=== PATIENT | female | born 1935 | race African-American/Black ===

== ENCOUNTER 2021-03-07 01:51 | Emergency (ER) | payer MEDICARE, OTHER ==
[~2021-03-07] VITALS: Ht 172.7 cm; Wt 139.7 kg
[2021-03-07] MEDS ORDERED: MORPHINE SULFATE 4 MG/ML SYR/VIAL IV ONE (02:30)
[2021-03-07 02:41] LABS: Basophils # (auto) 0.3 10 ^3/uL (0-0.2); Basophils % (auto) 3.4 % (0.0-2.0); Eosinophils # (auto) 0.1 10 ^3/uL (0-0.8); Hematocrit 38.5 % (36.0-46.0); Hemoglobin 13.4 g/dL (12.2-16.2); Lymphocytes # (auto) 1.4 10 ^3/uL (0.4-5.4); Lymphocytes % (auto) 14.9 % (10.0-50.0); Mean Corpuscular Hemoglobin 31.4 pg (28.0-32.0); Mean Corpuscular Hgb Conc. 34.8 g/dL (32.0-36.0); Mean Corpuscular Volume 90.1 fL (80.0-100.0); Monocytes # (auto) 0.5 10 ^3/uL (0-1.3); Monocytes % (auto) 5.3 % (0.0-12.0); Neutrophils # (auto) 6.9 10 ^3/uL (1.6-8.6); Neutrophils % (auto) 75.4 % (37.0-80.0); Nucleated Red Blood Cells % 0.4 %; Red Blood Cells 4.27 10^6/uL (4.0-5.20); Red Cell Distribution Width 14.5 % (11.8-14.3); White Blood Cell 9.2 10^3/uL (4.4-10.8)
[2021-03-07 02:45] LABS: INR 1.06 (0.9-1.15)
[2021-03-07 02:50] LABS: Albumin 3.5 g/dL (3.4-5.0); Calcium 9.3 mg/dL (8.5-10.1); Potassium 4.8 mmol/L (3.5-5.1)
[2021-03-07 02:52] LABS: BUN/Creatinine Ratio 15.9
[2021-03-07 02:55] LABS: Bilirubin, Total 0.6 mg/dL (0.2-1.0); Total Protein 9.1 g/dL (6.4-8.2)
[2021-03-07] MEDS ORDERED: HEPARIN DRIP/D5W 100UNITS/ML 250 ML IV SCH (03:45)
[2021-03-07] MEDS ORDERED: HEPARIN SODIUM (PORCINE) 5000 UNITS/ML 1ML VIAL IV ONE (03:45)
[2021-03-07 04:24] VITALS: BP 162/84
== END 2021-03-07 04:57 | disposition short-term general hospital (02) ==
LOC: ER 01:51 → EDBD 01:51 → ER 04:57
DX: I70.90 Unspecified atherosclerosis (principal); I11.0 Hypertensive heart disease with heart failure; I50.9 Heart failure, unspecified; E11.9 Type 2 diabetes mellitus without complications; E78.5 Hyperlipidemia, unspecified; Z88.0 Allergy status to penicillin; Z20.822 Contact with and (suspected) exposure to COVID-19
CPT/HCPCS: 36415; 80053; 85025; 85610; 85730; 87426; 93005; 93926; 93971; 96365; 96375; 96376; 99285; J1644; J2270

== ENCOUNTER 2022-06-26 04:39 | Inpatient (IN) | payer OTHER, MEDICAID ==
[~2022-06-26] VITALS: Ht 177.8 cm; Wt 145.0 kg
[2022-06-26] MEDS ORDERED: MORPHINE SULFATE INJ 2 MG/ml SYRG IV PRN (08:30)
[2022-06-26] MEDS ORDERED: ONDANSETRON HCL 4 MG/2 ML VIAL IV PRN (08:30)
[2022-06-26] MEDS ORDERED: DEXTROSE (50%) 50ML SYRG IV PRN (08:30)
[2022-06-26] MEDS ORDERED: hydrALAZINE HCL 10 MG TAB PO PRN (08:45)
[2022-06-26] MEDS ORDERED: DOCUSATE SOD 100 MG CAP PO PRN (08:45)
[2022-06-26] MEDS ORDERED: ACETAMINOPHEN 325 MG TAB PO PRN (08:45)
[2022-06-26 09:15] VITALS: BP 98/55
[2022-06-26] MEDS: HYDROcodone-ACET 5/325MG TAB PO PRN (09:34)
[2022-06-26] MEDS: InsuLIN REG 1unit/0.01ml Soln (100units/ml) SC SCH ×3 (11:30→22:00)
[2022-06-26] MEDS: ACCU-CHEK COMFORT CURVE STRIP VI SCH ×3 (12:32→22:58)
[2022-06-26] MEDS: levoFLOXacin 500MG 100 ML IV SCH (12:43)
[2022-06-26 13:00] VITALS: BP 96/49
[2022-06-26] MEDS ORDERED: CLINDAMYCIN 600MG IV 50 ML IV SCH (14:00)
[2022-06-26] MEDS: SOD CHL 0.45% 1,000 ML IV SCH ×2 (15:24→17:42)
[2022-06-26] MEDS ORDERED: VANCOMYCIN PER PHARMACY 0 MG IV SCH (15:30)
[2022-06-26] MEDS ORDERED: VANCOMYCIN 1GM/250ML 250 ML IV ONE (15:45)
[2022-06-26 16:25] LABS: Calcium 8.7 mg/dL (8.5-10.1); Potassium 3.8 mmol/L (3.5-5.1)
[2022-06-26 16:27] LABS: BUN/Creatinine Ratio 16.7 (10.0-20.0)
[2022-06-26 17:00] VITALS: BP 116/41
[2022-06-26 17:53] LABS: Urine Bacteria MOD /hpf (None Seen); Urine Blood Negative /uL (Negative); Urine Hyaline Cast MOD /lpf (0 - 2); Urine Mucus FEW (None Seen); Urine Specific Gravity 1.018 (1.001-1.035); Urine WBC 4 /hpf (0 - 5)
[2022-06-26 18:11] LABS: Protein, Urine 47.4 mg/dL (0.0-11.9); Sodium Urine < 5 mmol/L (40-220)
[2022-06-26 18:20] LABS: Creatinine, Urine 308 mg/dL (30.0-125.0)
[2022-06-26 18:49] LABS: Basophils # (auto) 0 10 ^3/uL (0-0.2); Basophils % (auto) 0.4 % (0.0-2.0); Eosinophils # (auto) 0.1 10 ^3/uL (0-0.8); Eosinophils % (auto) 1.3 % (0.0-7.0); Hematocrit 39.3 % (36.0-46.0); Hemoglobin 13.4 g/dL (12.2-16.2); Lymphocytes # (auto) 1.3 10 ^3/uL (0.4-5.4); Lymphocytes % (auto) 16.9 % (10.0-50.0); Mean Corpuscular Hemoglobin 32.7 pg (28.0-32.0); Mean Corpuscular Hgb Conc. 34.1 g/dL (32.0-36.0); Mean Corpuscular Volume 95.9 fL (80.0-100.0); Monocytes # (auto) 0.7 10 ^3/uL (0-1.3); Monocytes % (auto) 9.9 % (0.0-12.0); Neutrophils # (auto) 5.4 10 ^3/uL (1.6-8.6); Neutrophils % (auto) 71.5 % (37.0-80.0); Nucleated Red Blood Cells % 0.1 %; Red Blood Cells 4.09 10^6/uL (4.0-5.20); Red Cell Distribution Width 14.2 % (11.8-14.3); White Blood Cell 7.5 10^3/uL (4.4-10.8)
[2022-06-26 21:30] VITALS: BP 96/60
[2022-06-27] MEDS: HYDROcodone-ACET 5/325MG TAB PO PRN ×3 (02:10→15:49)
[2022-06-27] MEDS: SOD CHL 0.45% 1,000 ML IV SCH (04:35)
[2022-06-27 04:56] VITALS: BP 106/50
[2022-06-27] MEDS: ACCU-CHEK COMFORT CURVE STRIP VI SCH ×4 (06:00→22:00)
[2022-06-27 06:07] LABS: Basophils # (auto) 0 10 ^3/uL (0-0.2); Basophils % (auto) 0.3 % (0.0-2.0); Eosinophils # (auto) 0.1 10 ^3/uL (0-0.8); Eosinophils % (auto) 1.4 % (0.0-7.0); Hematocrit 34.2 % (36.0-46.0); Lymphocytes # (auto) 1.2 10 ^3/uL (0.4-5.4); Lymphocytes % (auto) 17.5 % (10.0-50.0); Mean Corpuscular Hemoglobin 32.2 pg (28.0-32.0); Mean Corpuscular Hgb Conc. 35.2 g/dL (32.0-36.0); Mean Corpuscular Volume 91.4 fL (80.0-100.0); Monocytes # (auto) 0.7 10 ^3/uL (0-1.3); Monocytes % (auto) 10.6 % (0.0-12.0); Neutrophils # (auto) 4.9 10 ^3/uL (1.6-8.6); Neutrophils % (auto) 70.2 % (37.0-80.0); Nucleated Red Blood Cells % 0.1 %; Red Blood Cells 3.74 10^6/uL (4.0-5.20); Red Cell Distribution Width 13.9 % (11.8-14.3)
[2022-06-27] MEDS: InsuLIN REG 1unit/0.01ml Soln (100units/ml) SC SCH ×4 (06:15→22:00)
[2022-06-27 06:29] LABS: Calcium 8.8 mg/dL (8.5-10.1); Potassium 3.8 mmol/L (3.5-5.1)
[2022-06-27 06:31] LABS: Phosphorus 5.2 mg/dL (2.5-4.90)
[2022-06-27 08:00] VITALS: BP 107/57
[2022-06-27] MEDS: levoFLOXacin 500MG 100 ML IV SCH (09:23)
[2022-06-27] MEDS ORDERED: SODIUM BICARBONATE 50ML VIAL 50 ML in SOD CHL 0.45% 1,000 ML IV SCH (11:15)
[2022-06-27 12:00] VITALS: BP 114/51
[2022-06-27] MEDS: DOPamine 1600MCG/ML D5W 250 ML IV SCH (13:22)
[2022-06-27] MEDS: SODIUM BICARBONATE 50ML VIAL 50 ML in SOD CHL 0.45% 1,000 ML IV SCH (15:50)
[2022-06-27 16:00] VITALS: BP 114/58
[2022-06-27 22:00] VITALS: BP 124/68
[2022-06-28 02:00] VITALS: BP 149/64
[2022-06-28 05:00] VITALS: BP 149/64
[2022-06-28] MEDS: InsuLIN REG 1unit/0.01ml Soln (100units/ml) SC SCH ×4 (06:05→22:00)
[2022-06-28] MEDS: ACCU-CHEK COMFORT CURVE STRIP VI SCH ×4 (06:05→22:00)
[2022-06-28] MEDS: SODIUM BICARBONATE 50ML VIAL 50 ML in SOD CHL 0.45% 1,000 ML IV SCH (06:06)
[2022-06-28 06:15] LABS: Basophils # (auto) 0 10 ^3/uL (0-0.2); Basophils % (auto) 0.3 % (0.0-2.0); Eosinophils # (auto) 0.1 10 ^3/uL (0-0.8); Eosinophils % (auto) 1.4 % (0.0-7.0); Hematocrit 35.8 % (36.0-46.0); Hemoglobin 12.7 g/dL (12.2-16.2); Lymphocytes % (auto) 14.3 % (10.0-50.0); Mean Corpuscular Hgb Conc. 35.5 g/dL (32.0-36.0); Mean Corpuscular Volume 90.3 fL (80.0-100.0); Monocytes # (auto) 0.8 10 ^3/uL (0-1.3); Monocytes % (auto) 10.8 % (0.0-12.0); Neutrophils # (auto) 5.1 10 ^3/uL (1.6-8.6); Neutrophils % (auto) 73.2 % (37.0-80.0); Nucleated Red Blood Cells % 0.1 %; Red Blood Cells 3.97 10^6/uL (4.0-5.20); Red Cell Distribution Width 13.9 % (11.8-14.3)
[2022-06-28 06:30] LABS: Anion Gap 8 (5-15); BUN/Creatinine Ratio 24.9 (10.0-20.0); Blood Urea Nitrogen 61 mg/dL (7-18); Calcium 9.2 mg/dL (8.5-10.1); Carbon Dioxide 23 mmol/L (21-32); Chloride 100 mmol/L (98-107); GFR African American 24 mL/min; GFR Non-African American 20 mL/min; Glucose 117 mg/dL (74-106); Sodium 131 mmol/L (136-145)
[2022-06-28 08:00] VITALS: BP 129/56
[2022-06-28] MEDS: ENOXAPARIN SOD 30 MG/0.3 ML SYRINGE SC SCH (10:24)
[2022-06-28] MEDS: HYDROcodone-ACET 5/325MG TAB PO PRN ×2 (10:25→20:21)
[2022-06-28] MEDS: DOPamine 1600MCG/ML D5W 250 ML IV SCH (10:27)
[2022-06-28] MEDS: levoFLOXacin 250MG 50 ML IV SCH (11:33)
[2022-06-28 12:00] VITALS: BP 125/66
[2022-06-28] MEDS ORDERED: ATOR20TA50 PO (15:00)
[2022-06-28] MEDS ORDERED: CLOP75TA70 PO (15:00)
[2022-06-28] MEDS ORDERED: FAMO20TA10 PO (15:00)
[2022-06-28 16:00] VITALS: BP 136/59
[2022-06-28] MEDS ORDERED: POTASSIUM CHL 20 Meq TABLET PO ONE (17:30)
[2022-06-28] MEDS ORDERED: MAGNESIUM OXIDE 400 MG TAB PO ONE (17:30)
[2022-06-28 22:00] VITALS: BP 126/69
[2022-06-29 05:00] VITALS: BP 119/65
[2022-06-29] MEDS: InsuLIN REG 1unit/0.01ml Soln (100units/ml) SC SCH ×2 (06:52→11:36)
[2022-06-29] MEDS: ACCU-CHEK COMFORT CURVE STRIP VI SCH ×2 (06:52→11:37)
[2022-06-29 07:03] LABS: Basophils # (auto) 0 10 ^3/uL (0-0.2); Basophils % (auto) 0.5 % (0.0-2.0); Eosinophils # (auto) 0.1 10 ^3/uL (0-0.8); Eosinophils % (auto) 1.4 % (0.0-7.0); Hematocrit 33.6 % (36.0-46.0); Hemoglobin 12.2 g/dL (12.2-16.2); Lymphocytes # (auto) 1.2 10 ^3/uL (0.4-5.4); Lymphocytes % (auto) 20.2 % (10.0-50.0); Mean Corpuscular Hemoglobin 32.7 pg (28.0-32.0); Mean Corpuscular Hgb Conc. 36.3 g/dL (32.0-36.0); Mean Corpuscular Volume 90.2 fL (80.0-100.0); Monocytes # (auto) 0.7 10 ^3/uL (0-1.3); Neutrophils % (auto) 66.9 % (37.0-80.0); Nucleated Red Blood Cells % 0.1 %; Red Blood Cells 3.73 10^6/uL (4.0-5.20); Red Cell Distribution Width 13.8 % (11.8-14.3); White Blood Cell 5.9 10^3/uL (4.4-10.8)
[2022-06-29 07:09] LABS: BUN/Creatinine Ratio 24.1 (10.0-20.0); Calcium 9.1 mg/dL (8.5-10.1); Magnesium 2.2 mg/dL (1.6-2.6); Potassium 3.2 mmol/L (3.5-5.1)
[2022-06-29 08:00] VITALS: BP 120/60
[2022-06-29 09:00] VITALS: BP 120/60
[2022-06-29] MEDS: HYDROcodone-ACET 5/325MG TAB PO PRN (09:01)
[2022-06-29] MEDS: levoFLOXacin 250MG 50 ML IV SCH (09:04)
[2022-06-29] MEDS: ENOXAPARIN SOD 30 MG/0.3 ML SYRINGE SC SCH (09:05)
[2022-06-29] MEDS ORDERED: POTASSIUM EFFERVESENT TAB 25 MEQ PO ONE (12:45)
[2022-06-29 13:00] VITALS: BP 134/64
[2022-06-29 13:22] VITALS: BP 120/60
[2022-06-29 13:32] VITALS: BP 134/64
[2022-06-29] MEDS ORDERED: CEL100T PO (15:08)
[2022-06-29] MEDS ORDERED: HYDR-4902 PO ×2 (15:08)
[2022-07-18] MEDS ORDERED: HYDR-4902 PO ×2 (18:21→18:43)
[2022-07-18] MEDS ORDERED: CIPR-173 PO (18:40)
[2022-07-19] MEDS ORDERED: HYDR-4902 PO (14:12)
== END 2022-06-29 16:01 | disposition home or self-care (01) | DRG 299 ==
LOC: TELE-CENTR 07:50
PROVIDERS: ADMIT Internal Medicine; ATTEND Internal Medicine
DX: E11.51 Type 2 diabetes mellitus with diabetic peripheral angiopathy without gangrene (principal); N17.0 Acute kidney failure with tubular necrosis; I70.92 Chronic total occlusion of artery of the extremities; E87.20 Acidosis, unspecified; E11.42 Type 2 diabetes mellitus with diabetic polyneuropathy; E78.5 Hyperlipidemia, unspecified; E83.39 Other disorders of phosphorus metabolism; I12.9 Hypertensive chronic kidney disease with stage 1 through stage 4 chronic kidney disease, or unspecified chronic kidney disease; E11.22 Type 2 diabetes mellitus with diabetic chronic kidney disease; I95.9 Hypotension, unspecified; N18.30 Chronic kidney disease, stage 3 unspecified; S81.802A Unspecified open wound, left lower leg, initial encounter; X58.XXXA Exposure to other specified factors, initial encounter; Z88.0 Allergy status to penicillin; Y93.89 Activity, other specified; Y92.89 Other specified places as the place of occurrence of the external cause; Y99.8 Other external cause status
CPT/HCPCS: 36415; 71045; 76775; 80048; 81001; 82010; 82306; 82570; 82962; 83735; 83880; 83970; 84100; 84156; 84300; 85025; 93926; 93971; 97110; 97116; 97530; G0378; J1815; J1956

== ENCOUNTER 2022-08-22 16:00 | Inpatient (IN) | payer OTHER, MEDICAID ==
[~2022-08-22] VITALS: Ht 177.8 cm; Wt 140.5 kg
[~2022-08-22 16:00] MED LIST: ATOR20TA50 PO; CIPR-173 PO; CLOP75TA70 PO; HYDR-4902 PO
[2022-08-22 18:37] LABS: Basophils # (auto) 0.1 10 ^3/uL (0-0.2); Basophils % (auto) 0.8 % (0.0-2.0); Eosinophils # (auto) 0 10 ^3/uL (0-0.8); Eosinophils % (auto) 0.3 % (0.0-7.0); Hematocrit 38.7 % (36.0-46.0); Hemoglobin 13.3 g/dL (12.2-16.2); Lymphocytes # (auto) 1.3 10 ^3/uL (0.4-5.4); Mean Corpuscular Hemoglobin 31.5 pg (28.0-32.0); Mean Corpuscular Hgb Conc. 34.2 g/dL (32.0-36.0); Mean Corpuscular Volume 92.2 fL (80.0-100.0); Monocytes # (auto) 0.7 10 ^3/uL (0-1.3); Monocytes % (auto) 8.3 % (0.0-12.0); Neutrophils # (auto) 6.2 10 ^3/uL (1.6-8.6); Neutrophils % (auto) 74.6 % (37.0-80.0); Nucleated Red Blood Cells % 0.1 %; Red Cell Distribution Width 14.1 % (11.8-14.3); White Blood Cell 8.4 10^3/uL (4.4-10.8)
[2022-08-22 19:00] LABS: BUN/Creatinine Ratio 10.8 (10.0-20.0); Calcium 8.9 mg/dL (8.5-10.1); Potassium 3.7 mmol/L (3.5-5.1)
[2022-08-22 19:03] LABS: Bilirubin, Total 0.6 mg/dL (0.2-1.0); Total Protein 7.2 g/dL (6.4-8.2)
[2022-08-22 20:20] VITALS: PULSE 79; RESP 16; O2SAT 98
[2022-08-22] MEDS ORDERED: HEPARIN SODIUM (PORCINE) 5000 UNITS/ML 1ML VIAL IV ONE (23:15)
[2022-08-22 23:49] LABS: INR 1.07 (0.9-1.15); Partial Thromboplastin Time 27.1 SEC (24.5-34.5); Prothrombin Time 11.2 sec (9.3-11.8)
[2022-08-23] MEDS: HEPARIN DRIP/D5W 100UNITS/ML 250 ML IV SCH (00:35)
[2022-08-23] MEDS ORDERED: ONDANSETRON HCL 4 MG/2 ML VIAL IV ONE (00:45)
[2022-08-23] MEDS ORDERED: MORPHINE SULFATE 4 MG/ML SYR/VIAL IV ONE (00:45)
[2022-08-23] MEDS ORDERED: HYDROmorphone HCL 2 MG/ML VL/or syr IV ONE (02:00)
[2022-08-23 03:58] LABS: Urine Bacteria MOD /hpf (None Seen); Urine Blood 3+ /uL (Negative); Urine Clarity CLOUDY (Clear); Urine Color Yellow (Yellow); Urine Hyaline Cast MANY /lpf (0 - 2); Urine Mucus FEW (None Seen); Urine Protein, UAD 2+ (Negative); Urine Urobilinogen Normal (Negative); Urine WBC 208 /hpf (0 - 5); Urine WBC Clumps PRESENT /hpf (None Seen); Urine pH 5.5 (5.0-8.0)
[2022-08-23] MEDS ORDERED: FUROSEMIDE 40 MG/4 ML VIAL IV ONE (04:00)
[2022-08-23] MEDS ORDERED: DEXTROSE (50%) 50ML SYRG IV PRN (04:45)
[2022-08-23] MEDS ORDERED: ACETAMINOPHEN 325 MG TAB PO PRN (04:45)
[2022-08-23] MEDS ORDERED: NITROGLYCERIN 0.4 MG SL TAB SL PRN (04:45)
[2022-08-23] MEDS ORDERED: ONDANSETRON HCL 4 MG/2 ML VIAL IV PRN (04:45)
[2022-08-23] MEDS ORDERED: MORPHINE SULFATE INJ 2 MG/ml SYRG IV PRN (04:45)
[2022-08-23 07:39] VITALS: PULSE 92; RESP 20; O2SAT 95
[2022-08-23] MEDS: ACCU-CHEK COMFORT CURVE STRIP VI SCH ×4 (07:39→21:38)
[2022-08-23] MEDS: InsuLIN REG 1unit/0.01ml Soln (100units/ml) SC SCH ×4 (07:41→21:42)
[2022-08-23 07:42] LABS: BUN/Creatinine Ratio 13.5 (10.0-20.0); Potassium 3.1 mmol/L (3.5-5.1)
[2022-08-23] MEDS: CLOPIDOGREL BISULFATE 75 MG TAB PO SCH (10:00)
[2022-08-23] MEDS: PANTOPRAZOLE 40 MG TAB PO SCH (10:04)
[2022-08-23] MEDS: SODIUM CHLORIDE 0.9% 1,000 ML IV SCH (12:01)
[2022-08-23 13:49] LABS: INR 1.07 (0.9-1.15); Partial Thromboplastin Time 62.9 SEC (24.5-34.5); Prothrombin Time 11.2 sec (9.3-11.8)
[2022-08-23 17:44] VITALS: PULSE 92; RESP 20; O2SAT 94
[2022-08-23 18:45] VITALS: PULSE 84
[2022-08-23 20:00] VITALS: BP 127/59; PULSE 82; PULSE 87; RESP 18; RESP 20; TEMP 97.8; O2SAT 100
[2022-08-23 20:58] LABS: INR 1.05 (0.9-1.15); Partial Thromboplastin Time 59.5 SEC (24.5-34.5)
[2022-08-23] MEDS: ATORVASTATIN 20 MG TAB PO SCH (21:33)
[2022-08-23 22:00] VITALS: BP 119/72; PULSE 82; RESP 16; TEMP 97.8; O2SAT 100
[2022-08-24] VITALS (7 sets, daily range): BP systolic 102–136; BP diastolic 54–63; PULSE 71–83; RESP 12–20; TEMP 96.9–98; O2SAT 95–100
[2022-08-24] MEDS: HEPARIN DRIP/D5W 100UNITS/ML 250 ML IV SCH (00:41)
[2022-08-24] MEDS: SODIUM CHLORIDE 0.9% 1,000 ML IV SCH (06:19)
[2022-08-24] MEDS: ACCU-CHEK COMFORT CURVE STRIP VI SCH ×4 (06:19→21:51)
[2022-08-24] MEDS: InsuLIN REG 1unit/0.01ml Soln (100units/ml) SC SCH ×4 (06:20→22:31)
[2022-08-24] MEDS: CLOPIDOGREL BISULFATE 75 MG TAB PO SCH (08:50)
[2022-08-24] MEDS: PANTOPRAZOLE 40 MG TAB PO SCH (08:50)
[2022-08-24] MEDS: HYDROcodone-ACET 5/325MG TAB PO PRN ×3 (11:12→21:51)
[2022-08-24 11:23] LABS: INR 1.05 (0.9-1.15); Partial Thromboplastin Time 39.4 SEC (24.5-34.5)
[2022-08-24 11:31] LABS: Basophils # (auto) 0 10 ^3/uL (0-0.2); Basophils % (auto) 0.5 % (0.0-2.0); Eosinophils # (auto) 0.1 10 ^3/uL (0-0.8); Eosinophils % (auto) 0.9 % (0.0-7.0); Hematocrit 36.9 % (36.0-46.0); Hemoglobin 12.8 g/dL (12.2-16.2); Lymphocytes % (auto) 12.7 % (10.0-50.0); Mean Corpuscular Hemoglobin 31.3 pg (28.0-32.0); Mean Corpuscular Hgb Conc. 34.8 g/dL (32.0-36.0); Mean Corpuscular Volume 89.9 fL (80.0-100.0); Monocytes # (auto) 0.6 10 ^3/uL (0-1.3); Neutrophils # (auto) 6.3 10 ^3/uL (1.6-8.6); Neutrophils % (auto) 77.9 % (37.0-80.0); Nucleated Red Blood Cells % 0.1 %; Red Cell Distribution Width 14.2 % (11.8-14.3); White Blood Cell 8.1 10^3/uL (4.4-10.8)
[2022-08-24 11:36] LABS: Cholesterol 133 mg/dL (< 200)
[2022-08-24 11:39] LABS: HDL Cholesterol 40 mg/dL (40-59); LDL Cholesterol 82 mg/dL (< 100); Triglycerides 112 mg/dL (< 150)
[2022-08-24] MEDS ORDERED: HEPARIN DRIP/D5W 100UNITS/ML 250 ML IV SCH (12:00)
[2022-08-24 12:45] LABS: BUN/Creatinine Ratio 17.9 (10.0-20.0); Calcium 9.1 mg/dL (8.5-10.1); Potassium 3.3 mmol/L (3.5-5.1)
[2022-08-24] MEDS: APIXABAN 2.5 MG TAB PO SCH ×2 (13:01→21:51)
[2022-08-24] MEDS: LACTATED RINGER'S 1,000 ML IV SCH (16:37)
[2022-08-24] MEDS: ATORVASTATIN 20 MG TAB PO SCH (21:50)
[2022-08-25] MEDS: LACTATED RINGER'S 1,000 ML IV SCH (02:58)
[2022-08-25 05:00] VITALS: BP 127/61; PULSE 71; RESP 16; TEMP 98.6; O2SAT 98
[2022-08-25] MEDS: ACCU-CHEK COMFORT CURVE STRIP VI SCH ×4 (06:25→21:42)
[2022-08-25] MEDS: InsuLIN REG 1unit/0.01ml Soln (100units/ml) SC SCH ×4 (06:29→21:43)
[2022-08-25] MEDS: HYDROcodone-ACET 5/325MG TAB PO PRN ×2 (07:31→16:12)
[2022-08-25 08:00] VITALS: BP 116/55; PULSE 74; PULSE 82; RESP 16; RESP 20; TEMP 98; O2SAT 100
[2022-08-25 08:06] LABS: Potassium 2.7 mmol/L (3.5-5.1)
[2022-08-25] MEDS: PANTOPRAZOLE 40 MG TAB PO SCH (09:06)
[2022-08-25] MEDS: CLOPIDOGREL BISULFATE 75 MG TAB PO SCH (09:07)
[2022-08-25] MEDS: APIXABAN 2.5 MG TAB PO SCH ×2 (09:07→21:37)
[2022-08-25] MEDS ORDERED: POTASSIUM CHL 20MEQ/100ML 100 ML IV ONE ×2 (10:00→12:30)
[2022-08-25 12:42] LABS: Hepatitis B Surface Antigen Negative (Negative); Hepatitis C Antibody Negative (Negative)
[2022-08-25 13:00] VITALS: BP 126/54; PULSE 69; RESP 20; TEMP 98; O2SAT 99
[2022-08-25] MEDS ORDERED: levoFLOXacin 500MG 100 ML IV ONE (14:30)
[2022-08-25] MEDS ORDERED: POTASSIUM EFFERVESENT TAB 25 MEQ PO ONE (16:30)
[2022-08-25 16:36] LABS: BUN/Creatinine Ratio 15.5 (10.0-20.0); Calcium 9.4 mg/dL (8.5-10.1)
[2022-08-25 16:38] VITALS: BP 115/52; PULSE 80; RESP 18; TEMP 98.6; O2SAT 100
[2022-08-25 20:00] VITALS: PULSE 95
[2022-08-25] MEDS: ATORVASTATIN 20 MG TAB PO SCH (21:37)
[2022-08-25 22:00] VITALS: BP 118/76; PULSE 75; RESP 19; TEMP 98.1; O2SAT 96
[2022-08-26 05:00] VITALS: BP 99/47; PULSE 96; RESP 16; TEMP 98.2; O2SAT 94
[2022-08-26] MEDS: ACCU-CHEK COMFORT CURVE STRIP VI SCH ×2 (06:07→12:32)
[2022-08-26] MEDS: LACTATED RINGER'S 1,000 ML IV SCH ×2 (06:07)
[2022-08-26] MEDS: InsuLIN REG 1unit/0.01ml Soln (100units/ml) SC SCH ×2 (06:14→12:32)
[2022-08-26 06:50] LABS: Calcium 8.9 mg/dL (8.5-10.1); Potassium 3.5 mmol/L (3.5-5.1)
[2022-08-26 06:53] LABS: BUN/Creatinine Ratio 16.1 (10.0-20.0)
[2022-08-26 08:00] VITALS: BP 134/88; PULSE 79; RESP 20; TEMP 98.6; O2SAT 99
[2022-08-26 08:05] VITALS: BP 120/69; PULSE 79; PULSE 84; RESP 20; TEMP 98.6
[2022-08-26] MEDS: APIXABAN 2.5 MG TAB PO SCH (09:29)
[2022-08-26] MEDS: CLOPIDOGREL BISULFATE 75 MG TAB PO SCH (09:29)
[2022-08-26 13:00] VITALS: BP 125/51; PULSE 80; RESP 20; TEMP 98.6; O2SAT 97
[2022-08-26] MEDS ORDERED: CLOP75TA70 PO (13:37)
[2022-08-26] MEDS ORDERED: LEVO500T91 PO (13:37)
[2022-08-26] MEDS ORDERED: APIX2.5T PO (13:37)
[2022-08-26] MEDS ORDERED: ATOR20TA50 PO (13:37)
[2022-08-26] MEDS ORDERED: CAR3125T OR ×2 (13:37)
[2022-08-26] MEDS ORDERED: CARVEDILOL 3.125 MG TAB PO SCH (13:45)
[2022-08-26 14:22] VITALS: BP 125/51; PULSE 80; RESP 18; TEMP 98.1
[2022-08-26] MEDS ORDERED: APIXABAN 5 MG TAB PO SCH (22:00)
== END 2022-08-26 16:04 | disposition home health service (06) | DRG 682 ==
LOC: ER 16:00 → TELE 08-23 04:36 → TELE-WESTW 08-23 16:05
PROVIDERS: ADMIT Internal Medicine; ATTEND Internal Medicine
DX: N17.0 Acute kidney failure with tubular necrosis (principal); I21.A1 Myocardial infarction type 2; I13.0 Hypertensive heart and chronic kidney disease with heart failure and stage 1 through stage 4 chronic kidney disease, or unspecified chronic kidney disease; I48.20 Chronic atrial fibrillation, unspecified; Z68.41 Body mass index [BMI] 40.0-44.9, adult; N39.0 Urinary tract infection, site not specified; E87.8 Other disorders of electrolyte and fluid balance, not elsewhere classified; E66.01 Morbid (severe) obesity due to excess calories; N18.32 Chronic kidney disease, stage 3b; K52.9 Noninfective gastroenteritis and colitis, unspecified; I50.9 Heart failure, unspecified; L97.529 Non-pressure chronic ulcer of other part of left foot with unspecified severity; E11.621 Type 2 diabetes mellitus with foot ulcer; F32.A Depression, unspecified; E78.5 Hyperlipidemia, unspecified; E11.51 Type 2 diabetes mellitus with diabetic peripheral angiopathy without gangrene; I87.2 Venous insufficiency (chronic) (peripheral); E87.6 Hypokalemia; B96.89 Other specified bacterial agents as the cause of diseases classified elsewhere; E11.22 Type 2 diabetes mellitus with diabetic chronic kidney disease; Z88.0 Allergy status to penicillin; Z79.899 Other long term (current) drug therapy; Z79.891 Long term (current) use of opiate analgesic; Z82.49 Family history of ischemic heart disease and other diseases of the circulatory system; Z90.710 Acquired absence of both cervix and uterus
CPT/HCPCS: 36415; 71045; 74176; 80048; 80053; 80061; 81001; 82962; 83036; 83735; 83880; 84443; 84484; 85025; 85610; 85730; 86803; 87081; 87086; 87088; 87186; 87340; 93005; 93306; 97163; 99291; G0378; J1815; J1956; J2405; J3480

== ENCOUNTER 2022-08-30 22:02 | Inpatient (IN) | payer OTHER, MEDICAID ==
[~2022-08-30] VITALS: Ht 177.8 cm; Wt 123.9 kg
[~2022-08-30 22:02] MED LIST changes: +APIX2.5T PO; +CAR3125T OR; -CIPR-173 PO; -HYDR-4902 PO; +LEVO500T91 PO
[2022-08-30 23:37] VITALS: BP 124/55; PULSE 79; PULSE 81; RESP 12; TEMP 98.1; O2SAT 98
[2022-08-31] VITALS (7 sets, daily range): BP systolic 100–137; BP diastolic 46–57; PULSE 58–97; RESP 16–18; TEMP 98–98.9; O2SAT 95–100
[2022-08-31] MEDS ORDERED: ACETAMINOPHEN 325 MG TAB PO PRN (00:30)
[2022-08-31] MEDS ORDERED: hydrALAZINE HCL 10 MG TAB PO PRN (00:30)
[2022-08-31] MEDS ORDERED: ONDANSETRON HCL 4 MG/2 ML VIAL IV PRN (00:30)
[2022-08-31] MEDS ORDERED: NITROGLYCERIN 0.4 MG SL TAB SL PRN (00:30)
[2022-08-31] MEDS ORDERED: DEXTROSE (50%) 50ML SYRG IV PRN (00:30)
[2022-08-31] MEDS ORDERED: MORPHINE SULFATE INJ 2 MG/ml SYRG IV PRN (00:30)
[2022-08-31] MEDS ORDERED: MORPHINE SULFATE 4 MG/ML SYR/VIAL IV PRN (00:45)
[2022-08-31] MEDS: HYDROcodone-ACET 5/325MG TAB PO PRN ×3 (01:47→21:48)
[2022-08-31] MEDS: ACCU-CHEK COMFORT CURVE STRIP VI SCH ×4 (06:19→21:51)
[2022-08-31] MEDS: InsuLIN REG 1unit/0.01ml Soln (100units/ml) SC SCH ×4 (06:20→21:51)
[2022-08-31 07:02] LABS: Basophils # (auto) 0 10 ^3/uL (0-0.2); Basophils % (auto) 0.2 % (0.0-2.0); Eosinophils # (auto) 0.3 10 ^3/uL (0-0.8); Eosinophils % (auto) 3.3 % (0.0-7.0); Hematocrit 35.4 % (36.0-46.0); Hemoglobin 12.2 g/dL (12.2-16.2); Lymphocytes # (auto) 0.9 10 ^3/uL (0.4-5.4); Lymphocytes % (auto) 11.2 % (10.0-50.0); Mean Corpuscular Hemoglobin 31.7 pg (28.0-32.0); Mean Corpuscular Hgb Conc. 34.4 g/dL (32.0-36.0); Monocytes # (auto) 0.8 10 ^3/uL (0-1.3); Monocytes % (auto) 9.6 % (0.0-12.0); Neutrophils % (auto) 75.7 % (37.0-80.0); Nucleated Red Blood Cells % 0.1 %; Red Blood Cells 3.85 10^6/uL (4.0-5.20); Red Cell Distribution Width 14.4 % (11.8-14.3); White Blood Cell 7.9 10^3/uL (4.4-10.8)
[2022-08-31 07:13] LABS: Potassium 3.4 mmol/L (3.5-5.1)
[2022-08-31 07:17] LABS: BUN/Creatinine Ratio 9.5 (10.0-20.0); Calcium 8.8 mg/dL (8.5-10.1)
[2022-08-31] MEDS: ASPirin 81 mg TAB PO SCH (09:40)
[2022-08-31] MEDS: FUROSEMIDE 40 MG/4 ML VIAL IV SCH (10:52)
[2022-08-31] MEDS ORDERED: FELO10TA28 PO (15:46)
[2022-08-31] MEDS ORDERED: CARV6.2551 PO (15:46)
[2022-08-31] MEDS ORDERED: LOSA100T33 PO (15:46)
[2022-08-31] MEDS ORDERED: LOVA40TA72 PO (15:46)
[2022-08-31] MEDS ORDERED: GLIP-110 PO (16:33)
[2022-08-31] MEDS ORDERED: POTASSIUM CHL 20 Meq TABLET PO ONE (20:30)
[2022-08-31] MEDS ORDERED: ATORVASTATIN 20 MG TAB PO SCH (22:00)
[2022-08-31 23:06] LABS: Urine Bacteria MANY /hpf (None Seen); Urine Blood Negative /uL (Negative); Urine Clarity HAZY (Clear); Urine Color Yellow (Yellow); Urine Mucus FEW (None Seen); Urine Protein, UAD TRACE (Negative); Urine Specific Gravity 1.014 (1.001-1.035); Urine Urobilinogen Normal (Negative); Urine WBC 21 /hpf (0 - 5)
[2022-09-01] MEDS: HYDROcodone-ACET 5/325MG TAB PO PRN (04:16)
[2022-09-01 05:00] VITALS: BP 119/51; PULSE 83; RESP 20; TEMP 98.3; O2SAT 100
[2022-09-01] MEDS: InsuLIN REG 1unit/0.01ml Soln (100units/ml) SC SCH ×3 (06:13→17:00)
[2022-09-01] MEDS: ACCU-CHEK COMFORT CURVE STRIP VI SCH ×3 (06:13→17:57)
[2022-09-01 07:03] LABS: BUN/Creatinine Ratio 12.3 (10.0-20.0); Calcium 8.9 mg/dL (8.5-10.1)
[2022-09-01 08:00] VITALS: BP 108/43; PULSE 73; PULSE 88; RESP 17; RESP 19; TEMP 97.7; O2SAT 100
[2022-09-01] MEDS: ASPirin 81 mg TAB PO SCH (10:08)
[2022-09-01] MEDS: FUROSEMIDE 40 MG/4 ML VIAL IV SCH (10:09)
[2022-09-01] MEDS ORDERED: levoFLOXacin 500MG 100 ML IV ONE ×2 (10:45→11:00)
[2022-09-01 12:00] VITALS: BP 101/31; PULSE 71; RESP 21; TEMP 98.3; O2SAT 92
[2022-09-01] MEDS ORDERED: POTASSIUM CHL 20 Meq TABLET PO ONE (13:15)
[2022-09-01] MEDS: POTASSIUM CHL 20MEQ/100ML 100 ML IV SCH ×2 (13:41→17:57)
[2022-09-01 15:45] VITALS: BP 108/43; TEMP 36.5
[2022-09-01 16:00] VITALS: BP 134/86; PULSE 78; RESP 23; TEMP 97.4; O2SAT 100
[2022-09-02] MEDS ORDERED: levoFLOXacin 250MG 50 ML IV SCH (10:00)
[2022-09-02] MEDS ORDERED: POTASSIUM CHL 10 Meq TABLET PO SCH (10:00)
== END 2022-09-01 20:50 | DRG 281 ==
LOC: WEST WING 22:53 → TELE-WESTW 23:41
PROVIDERS: ADMIT Internal Medicine; ATTEND Internal Medicine
DX: I21.4 Non-ST elevation (NSTEMI) myocardial infarction (principal); I13.0 Hypertensive heart and chronic kidney disease with heart failure and stage 1 through stage 4 chronic kidney disease, or unspecified chronic kidney disease; J96.11 Chronic respiratory failure with hypoxia; N17.9 Acute kidney failure, unspecified; M62.82 Rhabdomyolysis; N39.0 Urinary tract infection, site not specified; I50.9 Heart failure, unspecified; E66.01 Morbid (severe) obesity due to excess calories; E78.5 Hyperlipidemia, unspecified; I25.10 Atherosclerotic heart disease of native coronary artery without angina pectoris; N18.32 Chronic kidney disease, stage 3b; E11.22 Type 2 diabetes mellitus with diabetic chronic kidney disease; L98.499 Non-pressure chronic ulcer of skin of other sites with unspecified severity; I87.8 Other specified disorders of veins; Z99.81 Dependence on supplemental oxygen; Z68.39 Body mass index [BMI] 39.0-39.9, adult; Z88.0 Allergy status to penicillin; Z82.49 Family history of ischemic heart disease and other diseases of the circulatory system; Z80.0 Family history of malignant neoplasm of digestive organs
CPT/HCPCS: 36415; 73700; 76775; 80048; 81001; 82550; 82962; 83615; 84484; 85025; 87040; 87205; 93970; 97163; 99291; G0378; J1815; J1956; J3480

== ENCOUNTER 2023-07-11 13:34 | Emergency (ER) | payer OTHER ==
[~2023-07-11] VITALS: Ht 175.3 cm; Wt 132.2 kg
[~2023-07-11 13:34] MED LIST changes: -CAR3125T OR; +CARV6.2551 PO; +FELO10TA28 PO; +GLIP-110 PO; +LOSA100T33 PO; +LOVA40TA72 PO
[2023-07-11 16:07] VITALS: BP 138/62; PULSE 74; RESP 18; TEMP 99.2; O2SAT 95
[2023-07-11 17:19] LABS: Basophils # (auto) 0 10 ^3/uL (0-0.2); Red Cell Distribution Width 13.6 % (11.8-14.3)
[2023-07-11 17:23] LABS: Basophils % (auto) 0.4 % (0.0-2.0); Eosinophils # (auto) 0.1 10 ^3/uL (0-0.8); Eosinophils % (auto) 1.1 % (0.0-7.0); Hematocrit 38.5 % (36.0-46.0); Hemoglobin 12.9 g/dL (12.2-16.2); Mean Corpuscular Hemoglobin 31.4 pg (28.0-32.0); Mean Corpuscular Hgb Conc. 33.4 g/dL (32.0-36.0); Monocytes # (auto) 0.7 10 ^3/uL (0-1.3); Monocytes % (auto) 11.1 % (0.0-12.0); Neutrophils # (auto) 4.2 10 ^3/uL (1.6-8.6); Neutrophils % (auto) 70.4 % (37.0-80.0); Nucleated Red Blood Cells % 0.1 %; Red Blood Cells 4.09 10^6/uL (4.0-5.20); White Blood Cell 5.9 10^3/uL (4.4-10.8)
[2023-07-11] MEDS ORDERED: DOXY-286 PO (17:35)
[2023-07-11] MEDS ORDERED: AZIT-185 PO (17:35)
[2023-07-11] MEDS ORDERED: BENZ100C97 PO (17:35)
[2023-07-11] MEDS ORDERED: PROM1SOL4 PO (17:35)
[2023-07-11] MEDS ORDERED: GUAI600T78 PO (17:36)
== END 2023-07-11 17:37 | disposition home or self-care (01) ==
LOC: ER 13:34
DX: R09.89 Other specified symptoms and signs involving the circulatory and respiratory systems (principal); E11.22 Type 2 diabetes mellitus with diabetic chronic kidney disease; I13.0 Hypertensive heart and chronic kidney disease with heart failure and stage 1 through stage 4 chronic kidney disease, or unspecified chronic kidney disease; N18.9 Chronic kidney disease, unspecified; I50.9 Heart failure, unspecified; E78.5 Hyperlipidemia, unspecified
CPT/HCPCS: 36415; 71045; 83605; 85025; 87040

== ENCOUNTER 2024-02-16 10:01 | Inpatient (IN) | payer OTHER ==
[~2024-02-16] VITALS: Ht 177.8 cm; Wt 141.0 kg
[~2024-02-16 10:01] MED LIST changes: +AZIT-185 PO; +BENZ100C97 PO; +DOXY-286 PO; +GUAI600T78 PO; +PROM1SOL4 PO
[2024-02-16] MEDS: cefTRIAXone 1GM/50ML D5W 50 ML IV ONE (10:51)
[2024-02-16] MEDS: HYDROcodone-ACET 5/325MG TAB PO ONE (11:01)
--- NOTE | 2024-02-16 11:01 | ED.PDOC ---
History of Present Illness HPI Comments 88F BIBA w/ no prior Hx associated to the c/c of face pain. EMS informs when they arrived on scene pt already has 2L NC at home and was SAT at 100%. Pt reports on having left chin swelling for the "past few days", as well as SOB and productive cough. PMHx of CHF, CKF, HTN, DM and High Lipids. Denies chills, fever, N/V/D, SOB, CP or other associated symptom's, modifiers, or recent injuries or sick contact at this time. Chief Complaint: Face pain Time Seen by MD: 10:20 Primary Care Provider: NATHALY Reviewed Notes: Nurses Notes, Medications, Allergies Allergies: Coded Allergies: Penicillins (Verified Allergy, Unknown, 03/07/21) Home Meds Active Scripts Guaifenesin (Mucinex) 600 Mg Tab, 1 TAB PO BID for 7 Days, #14 TAB 0 Refills Prov:RENE SUAREZ GRIEVANCE AND APPEALS SPECIALIST 07/11/23 Promethazine-Dm (Promethazine Dm 6.25-15 mg/5Ml) 1 Leila Leila, 5 ML PO DAILYP PRN for 10 Days, #50 ML 0 Refills Prov:RENE SUAREZ GRIEVANCE AND APPEALS SPECIALIST 07/11/23 Benzonatate (Benzonatate) 100 Mg Cap, 1 CAP PO TID for 10 Days, #30 CAP 0 Refills Prov:RENE SUAREZ GRIEVANCE AND APPEALS SPECIALIST 07/11/23 Doxycycline Hyclate (DOXYCYCLINE HYCLATE) 100 Mg Tab, 1 TAB PO BID for 7 Days, #14 TAB 0 Refills Prov:RENE SUAREZ GRIEVANCE AND APPEALS SPECIALIST 07/11/23 Azithromycin (ZITHROMAX TABLET) 250 Mg Tb, 250 MG PO DAILY for 5 Days, #6 TAB 0 Refills Prov:RENE SUAREZ GRIEVANCE AND APPEALS SPECIALIST 07/11/23 Levofloxacin Hemihydrate (LEVOFLOXACIN) 500 Mg Tab, 1 TAB PO DAILY for 4 Days, #4 TAB Prov:SRI BOYCE MD 08/26/22 Clopidogrel Bisulfate (CLOPIDOGREL) 75 Mg Tab, 75 MG PO DAILY, #30 TAB Prov:SRI BOYCE MD 08/26/22 Atorvastatin Calcium (ATORVASTATIN CALCIUM) 20 Mg Tab, 20 MG PO HS, #30 TAB Prov:SRI BOYCE MD 08/26/22 Apixaban Base (ELIQUIS) 2.5 Mg Tab, 2.5 MG PO BID for 30 Days, #60 TAB Prov:SRI BOYCE MD 08/26/22 Reported Medications Glipizide (Glipizide Er) 5 Mg Tab, 5 MG PO BID, MG 08/31/22 Losartan Potassium & Hydrochlo (Losartan Potassium/Hydroc) 1 Tab Tab, 1 TAB PO DAILY MDD 100-25mg, #30 TAB 5 Refills 08/31/22 Lovastatin (Lovastatin) 40 Mg Tab, 40 MG PO HS, TAB 08/31/22 Felodipine (Felodipine Er) 10 Mg Tab, 10 MG PO DAILY, TAB 08/31/22 Carvedilol (Carvedilol) 6.25 Mg Tab, 6.25 MG PO BID, MG 08/31/22 Information Source: Patient, Emergency Med Personnel Mode of Arrival: EMS Severity: Moderate Timing: Days Duration: Since onset, Days Prehospital treatment: None Past Medical History PAST MEDICAL HISTORY: CHF, CKF, DM, High Lipids, HTN Past Medical History (Other): on 2L NC at home Surgical History: Denies all surgeries TECHNICIAN SEMICONDUCTOR DEVELOPMENT History: No Pertinent TECHNICIAN SEMICONDUCTOR DEVELOPMENT History Family History Family History: Reviewed,noncontributory to illness, Unknown Social History Smoker: Non-Smoker Alcohol: Denies ETOH Use Drugs: Denies Drug Use Lives In: Home Constitutional: reports: others (face pain); denies: chills, diaphoresis, fatigue, fever, malaise, sweats, weakness EENTM: denies: blurred vision, double vision, ear bleeding, ear discharge, ear drainage, ear pain, ear ringing, eye pain, eye redness, hearing loss, mouth pain, mouth swelling, nasal discharge, nose bleeding, nose congestion, nose pain, photophobia, tearing, throat pain, throat swelling, voice changes, others Respiratory: reports: cough, SOB at rest, shortness of breath; denies: hemoptysis, orthopnea, SOB with excertion, stridor, wheezing, others Cardiovascular: denies: chest pain, dizzy spells, diaphoresis, Dyspnea on exertion, edema, irregular heart beat, left arm pain, lightheadedness, palpitations, PND, syncope, others Gastrointestinal: denies: abdomen distended, abdominal pain, blood streaked bowels, constipated, diarrhea, dysphagia, difficulty swallowing, hematemesis, melena, nausea, poor appetite, poor fluid intake, rectal bleeding, rectal pain, vomiting, others Genitourinary: denies: abnormal vagina bleeding, burning, dyspareunia, dysuria, flank pain, frequency, hematuria, incontinence, pain, , vagina d ischarge, urgency, others Neurological: denies: dizziness, fainting, headache, left sided numbness, left sided weakness, numbness, paresthesia, pre-existing deficit, right sided numbness, right sided weakness, seizure, speech problems, tingling, tremors, weakness, others Musculoskeletal: denies: back pain, gout, joint pain, joint swelling, muscle pain, muscle stiffness, neck pain, others Integumetry: denies: bruises, change in color, change in hair/nails, dryness, laceration, lesions, lumps, rash, wounds, others Allergic/Immunocompromised: denies: Difficulty Healing, Frequent Infections, Hives, Itching, others Hematologic/Lymphatic: denies: anemia, blood clots, easy bleeding, easy bruising, swollen glands, others Endocrine: denies: excessive hunger, excessive sweating, excessive thirst, excessive urination, flushing, intolerance to cold, intolerance to heat, unexplained weight gain, unexplained weight loss, others Psychiatric: denies: anxiety, bipolar disorder, depression, hopeless, panic disorder, schizophrenia, sleepless, suicidal, others All Other Systems: Reviewed and Negative Physical Exam Exam Comments Left chin is swollen and tender, the mid lower mucosa of the lower incisor with swelling. no tongue deviation. no trismus, no hoarseness, no swelling at floor of mouth General Appearance: No Apparent Distress, Normal HEENT: Pharynx Normal, TMs Normal, Other (buccal mucosa ) Neck: Full Range of Motion, Non-Tender, Normal, Normal Inspection Respiratory: Chest Non-Tender, Lungs Clear, No Accessory Muscle Use, No Respiratory Distress, Normal Breath Sounds Cardiovascular: No Edema, No JVD, No Murmur, No Gallop, Normal Peripheral Pulses, Regular Rate/Rhythm Breast Exam: Deferred Gastrointestinal: No Organomegaly, Non Tender, No Pulsatile Mass, Normal Bowel Sounds, Soft Genitalia: Deferred Pelvic: Deferred Rectal: Deferred Extremities: No calf tenderness, Normal capillary refill, Normal inspection, Normal range of motion, Non-tender, No pedal edema Musculoskeletal : Apperance: Normal Neurologic: Alert, police judge II-XII nml as Tested, No Motor Deficits, Normal Affect, Normal Mood, No Sensory Deficits Cerebellar Function: Normal Reflexes: Normal Skin: Dry, Normal Color, Warm Lymphatic: No Adenopathy Was a procedure done? Was a procedure done?: Yes Sedation Sedation?: No Informed consent obtained: Yes Other Procedure Procedure needle aspiration of dental abscess. with an 18 g needle i was able to flatten the abscess by extracting 3cc purulent material Differential Dx Considerations may include: facial cellulitis, facial abscess. dental abscess, trench mouth, lugwig's angina X-Ray, Labs, Meds, VS Vital Signs Date Time Temp Pulse Resp B/P (MAP) Pulse Ox O2 Delivery O2 Flow Rate FiO2 02/16/24 16:14 78 20 152/81 (104) 20 02/16/24 15:01 64 16 156/68 (97) 94 02/16/24 15:01 64 16 156/68 02/16/24 14:06 63 13 172/78 02/16/24 12:40 64 18 99 Nasal Cannula* 2 28 02/16/24 12:39 64 18 169/91 (117) 99 02/16/24 10:28 97.8 76 16 139/113 (122) 100 02/16/24 10:17 68 Lab Test 02/16/24 11:29 Range/Units White Blood Count 10.6 4.4-10.8 10^3/uL Red Blood Count 4.24 4.0-5.20 10^6/uL Hemoglobin 13.2 12.2-16.2 g/dL Hematocrit 38.6 36.0-46.0 % Mean Corpuscular Volume 91.2 80.0-100.0 fL Mean Corpuscular Hemoglobin 31.2 28.0-32.0 pg Mean Corpuscular Hemoglobin Concent 34.2 32.0-36.0 g/dL Red Cell Distribution Width 14.2 11.8-14.3 % Platelet Count 306 140-450 10^3/uL Mean Platelet Volume 8.2 6.9-10.8 fL Neutrophils (%) (Auto) 78.9 37.0-80.0 % Lymphocytes (%) (Auto) 13.7 10.0-50.0 % Monocytes (%) (Auto) 6.3 0.0-12.0 % Eosinophils (%) (Auto) 0.8 0.0-7.0 % Basophils (%) (Auto) 0.3 0.0-2.0 % Neutrophils # (Auto) 8.3 1.6-8.6 10 ^3/uL Lymphocytes # (Auto) 1.5 0.4-5.4 10 ^3/uL Monocytes # (Auto) 0.7 0-1.3 10 ^3/uL Eosinophils # (Auto) 0.1 0-0.8 10 ^3/uL Basophils # (Auto) 0 0-0.2 10 ^3/uL Nucleated Red Blood Cells 0.1 % Erythrocyte Sedimentation Rate Pending Sodium Level 139 136-145 mmol/L Potassium Level 3.5 3.5-5.1 mmol/L Chloride Level 100 98-107 mmol/L Carbon Dioxide Level 31 20-31 mmol/L Anion Gap 8 5-15 Blood Urea Nitrogen 15 9-23 mg/dL Creatinine 1.15 H 0.550-1.02 mg/dL Glomerular Filtration Rate Calc 46 >90 mL/min BUN/Creatinine Ratio 13.0 10.0-20.0 Serum Glucose 137 H 74-106 mg/dL Calcium Level 10.3 8.7-10.4 mg/dL C-Reactive Protein High Sensitivity Pending Current Medications Medications (Trade) Dose Ordered Sig/Camille Route Start Time Stop Time Status Last Admin Acetaminophen/ Hydrocodone Bitart ([place] 5/325MG Tab) 1 tab ONCE ONCE PO 02/16/24 10:30 02/16/24 10:31 DC 02/16/24 11:01 Ceftriaxone Sodium 50 ml @ 100 mls/hr ONCE ONCE IV 02/16/24 10:30 02/16/24 10:59 DC 02/16/24 10:51 Promethazine HCl/ Codeine (Phenergan W/ Codeine) 5 ml ONCE ONCE PO 02/16/24 11:45 02/16/24 11:50 DC 02/16/24 12:28 Metronidazole 100 ml @ 100 mls/hr ONCE ONCE IV 02/16/24 13:45 02/16/24 14:44 DC 02/16/24 14:04 Morphine Sulfate 2 mg ONCE ONCE IV 02/16/24 13:45 02/16/24 13:46 DC 02/16/24 14:06 Ondansetron HCl (Zofran) 4 mg ONCE ONCE IV 02/16/24 13:45 02/16/24 13:46 DC 02/16/24 14:04 Time of 1ST Reevaluation: 10:50 Reevaluation 1ST: Unchanged Time of 2ND Reevaluation: 14:28 Reevaluation 2ND: Unchanged (i consulted Dr Morgan, who will need a ct before he can admit ) Patient Education/Counseling: Diagnosis, Treatment, Prognosis, Need For Follow Up Family Education/Counseling: No Family Present Additional Information - I reviewed the following notes from patient's past medical encounters:07/11/23 - The following tests were ordered, and results were reviewed by me: Labs, X- Ray, PHA - Additional information was gathered from interviewing the following independent Historian: EMT - I reviewed and agreed with the following test results read by other provider: X-ray - I discussed treatments and results with medical personnel and: (consultants, family) i was able to aspirate about 3cc of purulent material from the lower gingival mucosal abscess and flattened the area. pt does not have eveidence of lugwig's angina or trench mouth, but she has a gingival abscess with reactive submental adenopathy. she is tender. she will be admitted for antibiotic and pain control, and to ensure the infection does not spread, as she may be at risk to develop lugwig's angina Departure 1 Departure Time of Disposition: 13:49 Impression: Primary Impression: Dental abscess Additional Impression: Facial cellulitis Disposition: ADMITTED INPATIENT Admit to: Med Surg Condition: Stable Discharged With: Self Critical Care Note Critical Care Time?: Yes (55 min-critical care time only) Critical care comment: due to concerns for patient's condition deteriorating, the care required my highest level of attention and readiness to intervene. i assessed the patient's condition, ordered the proper tests and treatments, reassessed for response and reviewed the results. i communicated with medical personnel and formulated a plan of care. total critical care time does not include any procedures Stability Stability form required: No I personally scribed for CYNTHIA FERNANDEZ MD ([email or web address]) on 02/16/24 at 11:01. Electronically submitted by Charles Matthews ([email or web address]). CYNTHIA FERNANDEZ MD Feb 16, 2024 11:01
--- NOTE | 2024-02-16 11:11 | DVH ---
Mandible radiograph CLINICAL INDICATION: MENTAL PAIN, SWELLLING TECHNIQUE: 4 radiographic views of the bilateral mandibles were obtained. Comparison: None FINDINGS: There is no evidence of acute fracture or dislocation. The visualized joint space is well maintained. The alignment is anatomical. Soft tissues are unremarkable. IMPRESSION: No acute fracture or dislocation.
[2024-02-16 12:08] LABS: Anion Gap 8 (5-15); Chloride 100 mmol/L (98-107); Potassium 3.5 mmol/L (3.5-5.1); Sodium 139 mmol/L (136-145)
[2024-02-16 12:09] LABS: Calcium 10.3 mg/dL (8.7-10.4)
[2024-02-16 12:10] LABS: Basophils # (auto) 0 10 ^3/uL (0-0.2); Basophils % (auto) 0.3 % (0.0-2.0); Eosinophils # (auto) 0.1 10 ^3/uL (0-0.8); Eosinophils % (auto) 0.8 % (0.0-7.0); Hematocrit 38.6 % (36.0-46.0); Hemoglobin 13.2 g/dL (12.2-16.2); Lymphocytes # (auto) 1.5 10 ^3/uL (0.4-5.4); Lymphocytes % (auto) 13.7 % (10.0-50.0); Mean Corpuscular Hemoglobin 31.2 pg (28.0-32.0); Mean Corpuscular Hgb Conc. 34.2 g/dL (32.0-36.0); Mean Corpuscular Volume 91.2 fL (80.0-100.0); Monocytes # (auto) 0.7 10 ^3/uL (0-1.3); Monocytes % (auto) 6.3 % (0.0-12.0); Neutrophils # (auto) 8.3 10 ^3/uL (1.6-8.6); Neutrophils % (auto) 78.9 % (37.0-80.0); Nucleated Red Blood Cells % 0.1 %; Platelet Count (auto) 306 10^3/uL (140-450); Red Blood Cells 4.24 10^6/uL (4.0-5.20); Red Cell Distribution Width 14.2 % (11.8-14.3); White Blood Cell 10.6 10^3/uL (4.4-10.8)
[2024-02-16 12:11] LABS: Carbon Dioxide 31 mmol/L (20-31)
[2024-02-16 12:14] LABS: Blood Urea Nitrogen 15 mg/dL (9-23)
[2024-02-16 12:15] LABS: Glucose 137 mg/dL (74-106)
[2024-02-16] MEDS: PROMETHAZINE W/CODEINE 5 ML ORAL SYRUP PO ONE (12:28)
[2024-02-16 12:40] VITALS: PULSE 64; RESP 18; O2SAT 99
[2024-02-16] MEDS: ONDANSETRON HCL 4 MG/2 ML VIAL IV ONE (14:04)
[2024-02-16] MEDS: metroNIDAZOLE 500MG/100ML 100 ML IV ONE (14:04)
[2024-02-16] MEDS: MORPHINE SULFATE INJ 2 MG/ml SYRG IV ONE (14:06)
--- NOTE | 2024-02-16 15:03 | DVH ---
HISTORY: r/o lugwig's, buccal abscess TECHNIQUE: Nonenhanced axial images through the facial bones with coronal and sagittal MPR. Radiation Dose Information: CT Dose: CTDI volume is 56.67 mGy. Dose-length product is 1142.05 mGy*cm FINDINGS: Mandible: Soft tissue swelling on the right no gas in the soft tissues Maxilla: Soft tissue swelling in the right adjacent to the maxilla. No gas in the soft tissues. No d rainable fluid collections. Pterygoid plates: No emi Zygomatic processes: No fracture. Zygomatic arches: No fracture Orbits: No fracture Sinuses: Mild mucosal thickening in the ethmoid sinuses. No significant mucosal thickening in the ma xillary sinuses. Facial swelling: Soft tissue swelling on the right no drainable fluid collections IMPRESSION: 1. Soft tissue swelling on the right no drainable fluid collections. 2. No gas in the soft tissues on the right. Radiation optimization: All CT scans at this facility use at least one of these dose optimization rosina hniques: automated exposure control mA and/or kV adjustment per patient size (includes targeted exam s where dose is matched to clinical indication) or iterative reconstruction.
[2024-02-16] MEDS ORDERED: NITROGLYCERIN 0.4 MG SL TAB SL PRN (16:30)
[2024-02-16] MEDS ORDERED: ONDANSETRON HCL 4 MG/2 ML VIAL IV PRN (16:30)
[2024-02-16] MEDS ORDERED: PROMETHAZINE-DM 5 ML ORAL SYRUP PO PRN (16:30)
[2024-02-16] MEDS ORDERED: HYDROcodone-ACET 5/325MG TAB PO PRN (16:30)
[2024-02-16] MEDS ORDERED: MORPHINE SULFATE INJ 2 MG/ml SYRG IV PRN ×2 (16:30)
[2024-02-16] MEDS ORDERED: VANCOMYCIN PER PHARMACY 0 MG IV SCH (16:30)
[2024-02-16] MEDS: DOXYCYCLINE 100MG/100ML 100 ML IV SCH (17:00)
[2024-02-16] MEDS ORDERED: VANCOMYCIN 1.5GM/300ML 300 ML IV ONE (17:30)
--- NOTE | 2024-02-16 18:01 | DVHINCON2 ---
Date of service: Feb 16, [address] Morgan Reason for Consultation Cellulitis History of Present Illness This is an 88 year old female with a history of CHF, hypertension, A fib, Chronic kidney failure, DM, hyperlipidemia presents with left chin swelling for the "past few days", as well as SOB and productive cough. Patient reports she noticed swelling to her chin and pain x 4 days ago. Past Medical History Cardiac: AFIB, CHF, HTN, Hyperlipidemia Pulmonary: No pertinent Hx Central Nervous System: No pertinent Hx GI: No pertinent Hx Hemotology/Oncology: No pertinent Hx Hepatobiliary: No pertinent Hx Psychiatric: No pertinent Hx Musculoskeletal: No pertinent Hx Rheumotologic: No pertinent Hx Infectious Disease: No peritnent Hx ENT: No pertinent Hx Renal/: No pertinent Hx Endocrine: NIDDM Dermatology: No pertinent Hx Family History: FH: CHF (congestive heart failure) G8 FATHER FH: cancer (stomach CA as reported by patient) G8 MOTHER FH: heart attack G8 FATHER 19 CHILD Family History Patient Family History: FH: CHF (congestive heart failure) G8 FATHER FH: cancer (stomach CA as reported by patient) G8 MOTHER FH: heart attack G8 FATHER 19 CHILD Social History Smoker: No Hx (Negative) Alocohol: None Drugs: None Lives with: With family Domestic Violence: Neg Allergies: Coded Allergies: Penicillins (Verified Allergy, Unknown, 03/07/21) Home Meds Active Scripts Yeast (S. Boulardii)(S. Cerevi (Probiotic) 250 Mg Cap, 250 MG PO DAILY, #14 CAP Prov:LEVI BERTRAND MD 02/19/24 Doxycycline (Monohydrate) (Doxycycline) 100 Mg Cap, 100 MG PO BID, #14 CAP Prov:LEVI BERTRAND MD 02/19/24 Guaifenesin (Mucinex) 600 Mg Tab, 1 TAB PO BID for 7 Days, #14 TAB 0 Refills Prov:RENE SUAREZ NP 07/11/23 Promethazine-Dm (Promethazine Dm 6.25-15 mg/5Ml) 1 Leila Leila, 5 ML PO DAILYP PRN for 10 Days, #50 ML 0 Refills Prov:RENE SUAREZ NP 07/11/23 Benzonatate (Benzonatate) 100 Mg Cap, 1 CAP PO TID for 10 Days, #30 CAP 0 Refills Prov:RENE SUAREZ FLAT BREAKDOWN PROCESSOR 07/11/23 Clopidogrel Bisulfate (CLOPIDOGREL) 75 Mg Tab, 75 MG PO DAILY, #30 TAB Prov:SRI BOYCE MD 08/26/22 Atorvastatin Calcium (ATORVASTATIN CALCIUM) 20 Mg Tab, 20 MG PO HS, #30 TAB Prov:SRI BOYCE MD 08/26/22 Apixaban Base (ELIQUIS) 2.5 Mg Tab, 2.5 MG PO BID for 30 Days, #60 TAB Prov:SRI BOYCE MD 08/26/22 Reported Medications Glipizide (Glipizide Er) 5 Mg Tab, 5 MG PO BID, MG 08/31/22 Losartan Potassium & Hydrochlo (Losartan Potassium/Hydroc) 1 Tab Tab, 1 TAB PO DAILY MDD 100-25mg, #30 TAB 5 Refills 08/31/22 Lovastatin (Lovastatin) 40 Mg Tab, 40 MG PO HS, TAB 08/31/22 Felodipine (Felodipine Er) 10 Mg Tab, 10 MG PO DAILY, TAB 08/31/22 Carvedilol (Carvedilol) 6.25 Mg Tab, 6.25 MG PO BID, MG 08/31/22 Discontinued Scripts Doxycycline Hyclate (DOXYCYCLINE HYCLATE) 100 Mg Tab, 1 TAB PO BID for 7 Days, #14 TAB 0 Refills Prov:RENE SUAREZ FLAT BREAKDOWN PROCESSOR 07/11/23 Azithromycin (ZITHROMAX TABLET) 250 Mg Tb, 250 MG PO DAILY for 5 Days, #6 TAB 0 Refills Prov:RENE SUAREZ FLAT BREAKDOWN PROCESSOR 07/11/23 Levofloxacin Hemihydrate (LEVOFLOXACIN) 500 Mg Tab, 1 TAB PO DAILY for 4 Days, #4 TAB Prov:SRI BOYCE MD 08/26/22 Current Medications Current Medications Medications (Trade) Dose Ordered Sig/Camille Route PRN Reason Start Time Stop Time Status Last Admin Atorvastatin Calcium (Lipitor) 20 mg HS PO 02/16/24 22:00 Promethazine HCl/ Dextromethorphan (Phenergan-Dm) 5 ml DAILYP PRN PO FOR COUGH 02/16/24 16:30 Carvedilol (Coreg Tablet) 6.25 mg BID PO 02/16/24 22:00 Amlodipine Besylate (Norvasc Tablet) 10 mg DAILY PO 02/17/24 10:00 Glipizide (Glucotrol Tablet) 5 mg DAILY PO 02/16/24 17:01 Patient Own Medication 1 tab BID PO 02/16/24 22:00 Losartan Potassium (Cozaar Tablet) 100 mg DAILY PO 02/17/24 10:00 Atorvastatin Calcium (Lipitor) 20 mg HS PO 02/16/24 22:00 Cancel Nitroglycerin (Ntrostat Sublingual) 0.4 mg Q5MINP PRN SL FOR CHEST PAIN 02/16/24 16:30 Morphine Sulfate 2 mg Q30M PRN IV FOR CHEST PAIN 02/16/24 16:30 Vancomycin HCl 0 ml @ 0 mls/hr UD IV 02/16/24 16:30 Ondansetron HCl (Zofran) 4 mg Q4HPRN PRN IV NAUSEA / VOMITING 02/16/24 16:30 Acetaminophen/ Hydrocodone Bitart ([place] 5/325MG Tab) 1 tab Q6HPRN PRN PO MODERATE PAIN (4-6 PAIN SCALE) 02/16/24 16:30 Morphine Sulfate 2 mg Q6HPRN PRN IV SEVERE PAIN (7-10 PAIN SCALE) 02/16/24 16:30 Doxycycline Hyclate 100 ml @ 50 mls/hr Q12H IV 02/16/24 16:30 02/16/24 17:00 Review of Systems Constitutional: No symptom reported Ears, Nose, & Throat: Other (chin pain , swelling) Eyes: No symptom reported Pulmonary/Respiratory: No symptom reported Cardiovascular: No symptom reported Gastrointestinal: No symptom reported Genitourinary: No symptom reported Musculoskeletal: No symptom reported Skin: No symptom reported Psychiatric: No symptom reported Endocrine: No symptom reported Hemotologic/Lymphatic: No symptom reported Vital Signs Vital Signs Date Time Temp Pulse Resp B/P (MAP) Pulse Ox O2 Delivery O2 Flow Rate FiO2 02/16/24 16:14 78 20 152/81 (104) 20 02/16/24 12:40 Nasal Cannula* 2 28 02/16/24 10:28 97.8 Physical Exam General Appeara: Well developed, Well nourished, Normal Appearance Head Exam: Normal inspection Neck Exam: Normal inspection, Non-tender, Normal alignment Eye Exam: bilateral eye Normal inspection, bilateral eye PERRL, bilateral eye EOMI Ear Exam: bilateral ear Auricle normal, bilateral ear Canal normal Nasal Exam: Normal inspection Mouth: Normal Inspection (chin swelling) Pulmonary/Respiratory: Normal inspection, Normal breath sounds, Chest non- tender, Lungs clear Cardiovascular/Chest: Normal inspection, Regular rate, Normal Rhythm Peripheral Pulses: 2+ dorsalis pedis (R), 2+ dorsalis pedis (L), 2+ Radial (R), 2+ Radial (L) Abdominal Exam: Normal bowel sounds, Soft, No tenderness Back Exam: Normal inspection Pelvic Exam: Not done CYCLE CONSULTANT Exam: Normal hearing, Normal speech, PERRL Neuro/Mental St: Alert, Oriented Appearance: Appropriate appearance, Appropriate insight Eye contact/ Speech: Cooperative, Good eye contact, Normal speech Thoughts/Psych: Normal thought pattern Skin Exam: Normal inspection, Normal color, Warm/dry Labs/Diagnostic Data Labs Test 02/16/24 17:10 02/16/24 11:29 Range/Units White Blood Count 10.6 4.4-10.8 10^3/uL Red Blood Count 4.24 4.0-5.20 10^6/uL Hemoglobin 13.2 12.2-16.2 g/dL Hematocrit 38.6 36.0-46.0 % Mean Corpuscular Volume 91.2 80.0-100.0 fL Mean Corpuscular Hemoglobin 31.2 28.0-32.0 pg Mean Corpuscular Hemoglobin Concent 34.2 32.0-36.0 g/dL Red Cell Distribution Width 14.2 11.8-14.3 % Platelet Count 306 140-450 10^3/uL Mean Platelet Volume 8.2 6.9-10.8 fL Neutrophils (%) (Auto) 78.9 37.0-80.0 % Lymphocytes (%) (Auto) 13.7 10.0-50.0 % Monocytes (%) (Auto) 6.3 0.0-12.0 % Eosinophils (%) (Auto) 0.8 0.0-7.0 % Basophils (%) (Auto) 0.3 0.0-2.0 % Neutrophils # (Auto) 8.3 1.6-8.6 10 ^3/uL Lymphocytes # (Auto) 1.5 0.4-5.4 10 ^3/uL Monocytes # (Auto) 0.7 0-1.3 10 ^3/uL Eosinophils # (Auto) 0.1 0-0.8 10 ^3/uL Basophils # (Auto) 0 0-0.2 10 ^3/uL Nucleated Red Blood Cells 0.1 % Sodium Level 139 136-145 mmol/L Potassium Level 3.5 3.5-5.1 mmol/L Chloride Level 100 98-107 mmol/L Carbon Dioxide Level 31 20-31 mmol/L Anion Gap 8 5-15 Blood Urea Nitrogen 15 9-23 mg/dL Creatinine 1.15 H 0.550-1.02 mg/dL Glomerular Filtration Rate Calc 46 >90 mL/min BUN/Creatinine Ratio 13.0 10.0-20.0 Serum Glucose 137 H 74-106 mg/dL Calcium Level 10.3 8.7-10.4 mg/dL C-Reactive Protein High Sensitivity 1.99 H <1.0 mg/dL Assessment Patient is a [id number] with known history of CHF, Hypertension, A fib, CKF, DM, hyperlipidemia presents to the hospital with facial pain left chin swelling. Patient found to have Cellulitis Periodental anterior chin infection Recommendations: Antibiotic status: Vancomycin IV [Started on 02/15] Ceftriaxone IV [Started on 02/15] Doxycycline IV [Started on 02/15] 02/15, Maxillofacial CT showed Soft tissue swelling on the right no drainable fluid collections. No gas in the soft tissues on the right. 02/15, Mandible x-ray showed No acute fracture or dislocation. WBC normal Patient need to see ENT. Thank you for consult. Plan discussed with: Patient JF LOPEZ MD Feb 16, 2024 18:00
[2024-02-16 18:09] LABS: Erythrocyte Sedimentation Rate 48 mm/hr (0-20)
[2024-02-16 18:12] LABS: COVID19 ANTIGEN SOFIA FIA NEGATIVE (NEGATIVE); Rapid Influenza A Negative (Negative); Rapid Influenza B Negative (Negative)
[2024-02-16] MEDS: glipiZIDE 5 MG TAB PO SCH (18:12)
--- NOTE | 2024-02-16 18:49 | ECG ---
[facility] Test Date: 2024-02-16 Test Time: 10:17:28 Pat Name: HELEN TREVIÑO Department: er Room: 0219T Gender: F [employer] Network Manager: kamran : 1935 Requested By: CYNTHIA FERNANDEZ Order Number: [id number] Reading MD: Deng Heredia Measurements Intervals [place] Rate: 68 P: 0 PA: 0 QRS: 25 QRSD: 98 T: 198 QT: 437 QTc: 465 Interpretive Statements Atrial fibrillation Repol abnrm, severe global ischemia (LM/MVD) Baseline wander in lead(s) V6 Electronically Signed On 02-25-2024 14:11:22 PST by Deng Heredia Please click the below link to view image of tracing.
[2024-02-16 19:46] VITALS: PULSE 71; O2SAT 95
[2024-02-16] MEDS: VANCOMYCIN 1.25GM/250ML 250 ML IV SCH (21:08)
[2024-02-16 21:36] VITALS: BP 147/73; PULSE 73; RESP 16; TEMP 98.5; O2SAT 98
[2024-02-16 21:47] VITALS: PULSE 73; RESP 16; O2SAT 98
[2024-02-16] MEDS: GUAIFENESIN PO SCH (22:00)
[2024-02-16] MEDS: CARVEDILOL 3.125 MG TAB PO SCH (22:00)
[2024-02-16] MEDS: ATORVASTATIN 20 MG TAB PO SCH (22:00)
[2024-02-16] MEDS ORDERED: ATORVASTATIN 20 MG TAB PO SCH (22:00)
[2024-02-17] VITALS (9 sets, daily range): BP systolic 115–162; BP diastolic 50–83; PULSE 51–79; RESP 16–22; TEMP 97.9–98.6; O2SAT 97–100
--- NOTE | 2024-02-17 00:27 | DVHHP2 ---
Admitting Diagnosis: Periodontal anterior chin infection History of Present Illness History Source: Patient Exam Limitations: No limitations HPI Mrs. Elodia Rosales is an 88 year old female with a history of CHF, hypertension, A fib, Chronic kidney failure, DM, hyperlipidemia presents with left chin swelling for the "past few days", as well as SOB and productive cough. Patient reports she noticed swelling to her chin and pain x 4 days ago, patient denies any fevers, chills, nausea, vomiting, headaches, recent dental work, oral bleeding. Patient admitted for further evaluation. Home Meds Active Scripts Guaifenesin (Mucinex) 600 Mg Tab, 1 TAB PO BID for 7 Days, #14 TAB 0 Refills Prov:RENE SUAREZ NP 07/11/23 Promethazine-Dm (Promethazine Dm 6.25-15 mg/5Ml) 1 Leila Leila, 5 ML PO DAILYP PRN for 10 Days, #50 ML 0 Refills Prov:RENE SUAREZ DAT INSTRUCTOR 07/11/23 Benzonatate (Benzonatate) 100 Mg Cap, 1 CAP PO TID for 10 Days, #30 CAP 0 Refills Prov:RENE SUAREZ DAT INSTRUCTOR 07/11/23 Doxycycline Hyclate (DOXYCYCLINE HYCLATE) 100 Mg Tab, 1 TAB PO BID for 7 Days, #14 TAB 0 Refills Prov:RENE SUAREZ DAT INSTRUCTOR 07/11/23 Azithromycin (ZITHROMAX TABLET) 250 Mg Tb, 250 MG PO DAILY for 5 Days, #6 TAB 0 Refills Prov:RENE SUAREZ DAT INSTRUCTOR 07/11/23 Levofloxacin Hemihydrate (LEVOFLOXACIN) 500 Mg Tab, 1 TAB PO DAILY for 4 Days, #4 TAB Prov:SRI BOYCE MD 08/26/22 Clopidogrel Bisulfate (CLOPIDOGREL) 75 Mg Tab, 75 MG PO DAILY, #30 TAB Prov:SRI BOYCE MD 08/26/22 Atorvastatin Calcium (ATORVASTATIN CALCIUM) 20 Mg Tab, 20 MG PO HS, #30 TAB Prov:SRI BOYCE MD 08/26/22 Apixaban Base (ELIQUIS) 2.5 Mg Tab, 2.5 MG PO BID for 30 Days, #60 TAB Prov:RSI BOYCE MD 08/26/22 Reported Medications Glipizide (Glipizide Er) 5 Mg Tab, 5 MG PO BID, MG 08/31/22 Losartan Potassium & Hydrochlo (Losartan Potassium/Hydroc) 1 Tab Tab, 1 TAB PO DAILY MDD 100-25mg, #30 TAB 5 Refills 08/31/22 Lovastatin (Lovastatin) 40 Mg Tab, 40 MG PO HS, TAB 08/31/22 Felodipine (Felodipine Er) 10 Mg Tab, 10 MG PO DAILY, TAB 08/31/22 Carvedilol (Carvedilol) 6.25 Mg Tab, 6.25 MG PO BID, MG 08/31/22 Past Medical History Cardiac: AFIB, CHF, HTN, Hyperlipidemia Pulmonary: No pertinent Hx Central Nervous System: No pertinent Hx GI: No pertinent Hx Hemotology/Oncology: No pertinent Hx Hepatobiliary: No pertinent Hx Psychiatric: No pertinent Hx Musculoskeletal: No pertinent Hx Rheumotologic: No pertinent Hx Infectious Disease: No peritnent Hx ENT: No pertinent Hx Renal/: No pertinent Hx Endocrine: NIDDM Dermatology: No pertinent Hx Patient Family History: FH: CHF (congestive heart failure) G8 FATHER FH: cancer (stomach CA as reported by patient) G8 MOTHER FH: heart attack G8 FATHER 19 CHILD Smoker: No Hx (Negative) Alocohol: None Drugs: None Lives with: With family Domestic Violence: Neg Review of Systems Constitutional: No symptom reported Ears, Nose, & Throat: Other (chin pain , swelling) Eyes: No symptom reported Pulmonary/Respiratory: No symptom reported Cardiovascular: No symptom reported Gastrointestinal: No symptom reported Genitourinary: No symptom reported Musculoskeletal: No symptom reported Skin: No symptom reported Psychiatric: No symptom reported Endocrine: No symptom reported Hemotologic/Lymphatic: No symptom reported H&P Exam Vital Signs Vital Signs Date Time Temp Pulse Resp B/P (MAP) Pulse Ox O2 Delivery O2 Flow Rate FiO2 02/16/24 22:00 73 147/73 02/16/24 21:36 98.5 16 98 98.5 02/16/24 19:46 Nasal Cannula* 3 32 General Appeara: Well developed, Well nourished, Normal Appearance Head Exam: Normal inspection Neck Exam: Normal inspection, Non-tender, Normal alignment Eye Exam: bilateral eye Normal inspection, bilateral eye PERRL, bilateral eye EOMI Ear Exam: bilateral ear Auricle normal, bilateral ear Canal normal Nasal Exam: Normal inspection Mouth: Normal Inspection (chin swelling) Pulmonary/Respiratory: Normal inspection, Normal breath sounds, Chest non- tender, Lungs clear Cardiovascular/Chest: Normal inspection, Regular rate, Normal Rhythm Peripheral Pulses: 2+ dorsalis pedis (R), 2+ dorsalis pedis (L), 2+ Radial (R), 2+ Radial (L) Abdominal Exam: Normal bowel sounds, Soft, No tenderness Back Exam: Normal inspection Pelvic Exam: 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8 10^3/uL Red Blood Count 4.24 4.0-5.20 10^6/uL Hemoglobin 13.2 12.2-16.2 g/dL Hematocrit 38.6 36.0-46.0 % Mean Corpuscular Volume 91.2 80.0-100.0 fL Mean Corpuscular Hemoglobin 31.2 28.0-32.0 pg Mean Corpuscular Hemoglobin Concent 34.2 32.0-36.0 g/dL Red Cell Distribution Width 14.2 11.8-14.3 % Platelet Count 306 140-450 10^3/uL Mean Platelet Volume 8.2 6.9-10.8 fL Neutrophils (%) (Auto) 78.9 37.0-80.0 % Lymphocytes (%) (Auto) 13.7 10.0-50.0 % Monocytes (%) (Auto) 6.3 0.0-12.0 % Eosinophils (%) (Auto) 0.8 0.0-7.0 % Basophils (%) (Auto) 0.3 0.0-2.0 % Neutrophils # (Auto) 8.3 1.6-8.6 10 ^3/uL Lymphocytes # (Auto) 1.5 0.4-5.4 10 ^3/uL Monocytes # (Auto) 0.7 0-1.3 10 ^3/uL Eosinophils # (Auto) 0.1 0-0.8 10 ^3/uL Basophils # (Auto) 0 0-0.2 10 ^3/uL Nucleated Red Blood Cells 0.1 % Erythrocyte Sedimentation Rate 48 H 0-20 mm/hr Sodium Level 139 136-145 mmol/L Potassium Level 3.5 3.5-5.1 mmol/L Chloride Level 100 98-107 mmol/L Carbon Dioxide Level 31 20-31 mmol/L Anion Gap 8 5-15 Blood Urea Nitrogen 15 9-23 mg/dL Creatinine 1.15 H 0.550-1.02 mg/dL Glomerular Filtration Rate Calc 46 >90 mL/min BUN/Creatinine Ratio 13.0 10.0-20.0 Serum Glucose 137 H 74-106 mg/dL Calcium Level 10.3 8.7-10.4 mg/dL C-Reactive Protein High Sensitivity 1.99 H <1.0 mg/dL Assessment/Plan Problem List: (1) Facial cellulitis Plan 88 yo female with known history of CHF, Hypertension, A fib, CKF, DM, hyperlipidemia presents to the hospital with facial pain left chin swelling. Patient found to have 1. Periodental anterior chin infection PLAN Admit med surgical unit Infectious disease consultation IV antibiotics PT evaluation Full liquid diet Continue home medications when reconciled Discussed all above with patient who verbalizes agreement and understanding of care plan. All questions were answered. Discussed assessment and care plan with supervising / admitting MD. Plan discussed with: Patient, Other Code Visit Code Visit Total Time (mins): 45 Additional Comments Additional Comments Additional Comments Patient is seen and evaluated. Patient evaluated and admitted by nurse practitioner this morning. I agree with the her evaluation, documentation, assessment and care plan as outlined. ALBERT RUEDA Feb 17, 2024 00:27 LEVI BERTRAND MD Feb 17, 2024 16:17
[2024-02-17] MEDS: amLODIPine BESYLATE 5 MG TAB PO SCH (10:00)
[2024-02-17] MEDS: LOSARTAN POTASSIUM 50 MG TAB PO SCH (10:01)
[2024-02-17 11:42] LABS: Basophils # (auto) 0 10 ^3/uL (0-0.2); Basophils % (auto) 0.2 % (0.0-2.0); Eosinophils # (auto) 0.1 10 ^3/uL (0-0.8); Eosinophils % (auto) 1.1 % (0.0-7.0); Hematocrit 36.3 % (36.0-46.0); Hemoglobin 12.5 g/dL (12.2-16.2); Lymphocytes # (auto) 1.3 10 ^3/uL (0.4-5.4); Lymphocytes % (auto) 16.3 % (10.0-50.0); Mean Corpuscular Hemoglobin 31.4 pg (28.0-32.0); Mean Corpuscular Hgb Conc. 34.4 g/dL (32.0-36.0); Mean Corpuscular Volume 91.1 fL (80.0-100.0); Monocytes # (auto) 0.6 10 ^3/uL (0-1.3); Neutrophils # (auto) 6.1 10 ^3/uL (1.6-8.6); Neutrophils % (auto) 75.4 % (37.0-80.0); Platelet Count (auto) 305 10^3/uL (140-450); Red Blood Cells 3.99 10^6/uL (4.0-5.20); Red Cell Distribution Width 14.4 % (11.8-14.3)
[2024-02-17 12:07] LABS: Chloride 100 mmol/L (98-107); Sodium 137 mmol/L (136-145)
[2024-02-17 12:08] LABS: Anion Gap 7 (5-15); Carbon Dioxide 30 mmol/L (20-31)
[2024-02-17 12:09] LABS: Calcium 9.9 mg/dL (8.7-10.4)
[2024-02-17 12:14] LABS: BUN/Creatinine Ratio 13.3 (10.0-20.0); Blood Urea Nitrogen 15 mg/dL (9-23)
[2024-02-17 12:18] LABS: Glucose 132 mg/dL (74-106); Potassium 3.1 mmol/L (3.5-5.1)
[2024-02-17] MEDS ORDERED: DOXYCYCLINE 100MG/100ML 100 ML IV ONE ×2 (15:53→15:55)
--- NOTE | 2024-02-17 21:18 | DVHPN2 ---
Progress Note - Dictate Date Seen: Feb 17, 2024 Has the PT tested + for MRSA If YES, has PT been informed?: No Medical Necessity Reason Pt with a Central, PICC or Fol: No Subjective Patients a-fib rate is controlled. home PT with front wheel walker. vital signs Vital Sign Date Time Temp Pulse Resp B/P (MAP) Pulse Ox O2 Delivery O2 Flow Rate FiO2 02/17/24 21:00 97.9 53 18 128/58 (81) 100 97.9 02/17/24 20:00 Nasal Cannula* 2 28 Total Intake and Output 02/16/24 02/16/24 02/17/24 15:00 23:00 07:00 Intake Total 100 ml 400 ml 120 ml Balance 100 ml 400 ml 120 ml medications Current Medications Medications Dose Ordered Sig/Camille Route Start Time Stop Time Status Last Admin Dose Admin Atorvastatin Calcium 20 mg HS PO 02/16/24 22:00 02/16/24 22:00 20 MG Promethazine HCl/ Dextromethorphan 5 ml DAILYP PRN PO 02/16/24 16:30 Carvedilol 6.25 mg BID PO 02/16/24 22:00 02/16/24 22:00 6.25 MG Amlodipine Besylate 10 mg DAILY PO 02/17/24 10:00 02/17/24 10:00 10 MG Glipizide 5 mg DAILY PO 02/16/24 17:01 02/17/24 12:15 5 MG Patient Own Medication 1 tab BID PO 02/16/24 22:00 Losartan Potassium 100 mg DAILY PO 02/17/24 10:00 02/17/24 10:01 100 MG Atorvastatin Calcium 20 mg HS PO 02/16/24 22:00 Cancel Nitroglycerin 0.4 mg Q5MINP PRN SL 02/16/24 16:30 Morphine Sulfate 2 mg Q30M PRN IV 02/16/24 16:30 Vancomycin HCl 0 ml @ 0 mls/hr UD IV 02/16/24 16:30 Ondansetron HCl 4 mg Q4HPRN PRN IV 02/16/24 16:30 Acetaminophen/ Hydrocodone Bitart 1 tab Q6HPRN PRN PO 02/16/24 16:30 Morphine Sulfate 2 mg Q6HPRN PRN IV 02/16/24 16:30 Doxycycline Hyclate 100 ml @ 50 mls/hr Q12H IV 02/16/24 16:30 02/17/24 16:01 50 MLS/HR Vancomycin HCl 250 ml @ 200 mls/hr Q24H IV 02/16/24 20:00 02/17/24 20:07 200 MLS/HR objective General Appeara: Well developed, Well nourished, Normal Appearance Head Exam: Normal inspection Neck Exam: Normal inspection, Non-tender, Normal alignment Eye Exam: bilateral eye Normal inspection, bilateral eye PERRL, bilateral eye EOMI Ear Exam: bilateral ear Auricle normal, bilateral ear Canal normal Nasal Exam: Normal inspection Mouth: Normal Inspection (chin swelling) Pulmonary/Respiratory: Normal inspection, Normal breath sounds, Chest non- tender, Lungs clear Cardiovascular/Chest: Normal inspection, Regular rate, Normal Rhythm Peripheral Pulses: 2+ dorsalis pedis (R), 2+ dorsalis pedis (L), 2+ Radial (R), 2+ Radial (L) Abdominal Exam: Normal bowel sounds, Soft, No tenderness Back Exam: Normal inspection Pelvic Exam: Not done 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 Patient found to have Cellulitis Periodental anterior chin infection Recommendations: Antibiotic status: Vancomycin IV [Started on 02/15] Ceftriaxone IV [Started on 02/15] Doxycycline IV [Started on 02/15] 02/15, Maxillofacial CT showed Soft tissue swelling on the right no drainable fluid collections. No gas in the soft tissues on the right. 02/15, Mandible x-ray showed No acute fracture or dislocation. WBC normal Patient need to see ENT. Thank you for consult. Plan discussed with: Patient JF LOPEZ MD Feb 17, 2024 21:18
[2024-02-18] VITALS (8 sets, daily range): BP systolic 108–149; BP diastolic 61–96; PULSE 61–84; RESP 16–20; TEMP 97.5–98.4; O2SAT 95–100
--- NOTE | 2024-02-18 12:15 | DVHSR ---
APPROVED REPORT EXAM: LIMITED Two-dimensional and M-mode echocardiogram with Doppler and color Doppler. Blood Pressure: 132/80 mmHg INDICATION Controlled a-fib RISK FACTORS Obesity: Height: 5'10", Weight: 250 DIMENSIONS LVDd4.2 (3.8-5.7cm)LA (2D) (1.9-4.0cm)Aortic Root3.2 (2.0-3.7cm) LVDs2.8 (2.5-4.0cm)LA (MM) (1.9-4.0cm)Aortic Cusp Exc1.6 (1.5-2.0cm) EF (%) 60.0 (55-70%)Rt. Atrium (1.9-4.0cm)Asc. Aorta cm IVSd1.3 (0.7-1.1cm)RV (D) (1.8-2.4cm) PWd1.1 (0.7-1.1cm) Mitral Valve MitralMitral Stenosis E/A ratio0.02D MVAcm2 Aortic Valve Aortic ValveAortic Stenosis LVOT Diameter2.2 (1.8-2.4cm)Doppler AVAcm2 Pulmonic Valve V20.94m/s Tricuspid Valve TR Velocity2.90m/s [id number] Other Information Quality : Technically LimitedRhythm : Technically limited study due to body habitus, patient sitting up. 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
--- NOTE | 2024-02-18 16:43 | DVHPN2 ---
Progress Note - Dictate Date Seen: Feb 18, 2024 Medical Necessity Reason Pt with a Central, PICC or Fol: No Subjective Clinically feeling better. EKG shows a rate controlled atrial fibrillation. 2D echocardiogram is reviewed. Patient is chin infection is improved vital signs Vital Sign Date Time Temp Pulse Resp B/P (MAP) Pulse Ox O2 Delivery O2 Flow Rate FiO2 02/18/24 13:00 97.5 69 16 108/62 (77) 98 97.5 02/18/24 08:00 Nasal Cannula* 2 28 Total Intake and Output 02/17/24 02/17/24 02/18/24 15:00 23:00 07:00 Intake Total 1150 ml 320 ml Output Total 700 ml Balance 450 ml 320 ml medications Current Medications Medications Dose Ordered Sig/Camille Route Start Time Stop Time Status Last Admin Dose Admin Atorvastatin Calcium 20 mg HS PO 02/16/24 22:00 02/17/24 21:52 20 MG Promethazine HCl/ Dextromethorphan 5 ml DAILYP PRN PO 02/16/24 16:30 Carvedilol 6.25 mg BID PO 02/16/24 22:00 02/18/24 09:12 6.25 MG Amlodipine Besylate 10 mg DAILY PO 02/17/24 10:00 02/18/24 09:13 10 MG Glipizide 5 mg DAILY PO 02/16/24 17:01 02/18/24 11:16 5 MG Patient Own Medication 1 tab BID PO 02/16/24 22:00 Losartan Potassium 100 mg DAILY PO 02/17/24 10:00 02/18/24 09:14 100 MG Atorvastatin Calcium 20 mg HS PO 02/16/24 22:00 Cancel Nitroglycerin 0.4 mg Q5MINP PRN SL 02/16/24 16:30 Morphine Sulfate 2 mg Q30M PRN IV 02/16/24 16:30 Vancomycin HCl 0 ml @ 0 mls/hr UD IV 02/16/24 16:30 Ondansetron HCl 4 mg Q4HPRN PRN IV 02/16/24 16:30 Acetaminophen/ Hydrocodone Bitart 1 tab Q6HPRN PRN PO 02/16/24 16:30 Morphine Sulfate 2 mg Q6HPRN PRN IV 02/16/24 16:30 Doxycycline Hyclate 100 ml @ 50 mls/hr Q12H IV 02/16/24 16:30 02/18/24 16:29 50 MLS/HR Vancomycin HCl 250 ml @ 200 mls/hr Q24H IV 02/16/24 20:00 02/17/24 20:07 200 MLS/HR objective Comfortable in bed without distress. Alert awake oriented x3. No complaints. Heart irregular rate and rhythm S1 plus S2. Lungs fair air movement without rales wheezes. Abdomen obese soft positive bowel sounds. Extremities no edema. Oropharynx is clear without any lesions or exudates. laboratory and microbiology Laboratory Tests 02/17/24 11:20 Test 02/17/24 11:20 Range/Units Serum Glucose 132 H 74-106 mg/dL Assessment/Plan Given atrial fibrillation rate controlled for stroke prevention I will start her on low-dose Eliquis b.i.d.. Discussed with the patient regarding risks including bleeding versus benefits of stroke prevention. Otherwise continue rest of supportive care and treatment including antibiotics. If she remains stable discharge plan for home tomorrow. Discussed with the patient's nurse regarding care plan. Problems(with codes): (1) Atrial fibrillation, controlled (2) Facial cellulitis (3) DYLLAN (acute kidney injury) (4) Chronic kidney disease Plan discussed with: Other LEVI BERTRAND MD Feb 18, 2024 16:43
[2024-02-18] MEDS: APIXABAN 2.5 MG TAB PO SCH (21:24)
[2024-02-19 01:00] VITALS: BP 125/66; PULSE 67; RESP 22; TEMP 98.3; O2SAT 93
[2024-02-19 05:00] VITALS: BP 122/49; PULSE 71; RESP 20; TEMP 98.2; O2SAT 91
[2024-02-19 08:00] VITALS: PULSE 71
[2024-02-19 09:00] VITALS: BP 151/79; PULSE 65; RESP 20; TEMP 97.8; O2SAT 92
--- NOTE | 2024-02-19 10:51 | ECG ---
[facility] Test Date: 2024-02-17 Test Time: 16:52:50 Pat Name: HELEN TREVIÑO Department: Respiratoy Room: 0219T B Gender: F Distillation Operator: josep : 1935 Requested By: LEVI BERTRAND Order Number: [id number] Reading MD: Ivette Coulter Measurements Intervals [place] Rate: 60 P: 0 [place]: 0 QRS: 42 QRSD: 90 T: 121 QT: 529 QTc: 529 Interpretive Statements Atrial fibrillation Nonspecific repol abnormality, diffuse leads Prolonged QT interval Baseline wander in lead(s) I,II,aVR,aVL Electronically Signed On 02-20-2024 12:07:13 PST by Ivette Coulter Please click the below link to view image of tracing.
[2024-02-19 11:22] LABS: Basophils # (auto) 0 10 ^3/uL (0-0.2); Basophils % (auto) 0.6 % (0.0-2.0); Eosinophils # (auto) 0.3 10 ^3/uL (0-0.8); Hematocrit 37.4 % (36.0-46.0); Hemoglobin 12.8 g/dL (12.2-16.2); Lymphocytes # (auto) 1.4 10 ^3/uL (0.4-5.4); Lymphocytes % (auto) 21.1 % (10.0-50.0); Mean Corpuscular Hemoglobin 30.9 pg (28.0-32.0); Mean Corpuscular Hgb Conc. 34.1 g/dL (32.0-36.0); Mean Corpuscular Volume 90.6 fL (80.0-100.0); Monocytes # (auto) 0.5 10 ^3/uL (0-1.3); Monocytes % (auto) 7.4 % (0.0-12.0); Neutrophils # (auto) 4.3 10 ^3/uL (1.6-8.6); Neutrophils % (auto) 66.9 % (37.0-80.0); Nucleated Red Blood Cells % 0.3 %; Platelet Count (auto) 326 10^3/uL (140-450); Red Blood Cells 4.13 10^6/uL (4.0-5.20); Red Cell Distribution Width 14.1 % (11.8-14.3); White Blood Cell 6.4 10^3/uL (4.4-10.8)
[2024-02-19 11:35] LABS: Chloride 100 mmol/L (98-107); Sodium 137 mmol/L (136-145)
[2024-02-19 11:36] LABS: Anion Gap 8 (5-15); Calcium 9.8 mg/dL (8.7-10.4); Carbon Dioxide 29 mmol/L (20-31)
[2024-02-19 11:41] LABS: Blood Urea Nitrogen 16 mg/dL (9-23)
[2024-02-19 11:46] LABS: Glucose 140 mg/dL (74-106); Potassium 3.1 mmol/L (3.5-5.1)
[2024-02-19] MEDS ORDERED: DOXY100C79 PO (12:16)
[2024-02-19] MEDS ORDERED: SACC1CAP3 PO (12:16)
--- NOTE | 2024-02-19 12:16 | DVHDS2 ---
Discharge Summary Date of Admission Feb 16, 2024 at 16:22 Date of Discharge: Feb 19, 2024 Labs/Diagnostic Data: Laboratory Results Test 02/19/24 10:40 02/18/24 11:06 02/16/24 17:10 02/16/24 11:29 White Blood Count 6.4 10^3/uL (4.4-10.8) Red Blood Count 4.13 10^6/uL (4.0-5.20) Hemoglobin 12.8 g/dL (12.2-16.2) Hematocrit 37.4 % (36.0-46.0) Mean Corpuscular Volume 90.6 fL (80.0-100.0) Mean Corpuscular Hemoglobin 30.9 pg (28.0-32.0) Mean Corpuscular Hemoglobin Concent 34.1 g/dL (32.0-36.0) Red Cell Distribution Width 14.1 % (11.8-14.3) Platelet Count 326 10^3/uL (140-450) Mean Platelet Volume 8.3 fL (6.9-10.8) Neutrophils (%) (Auto) 66.9 % (37.0-80.0) Lymphocytes (%) (Auto) 21.1 % (10.0-50.0) Monocytes (%) (Auto) 7.4 % (0.0-12.0) Eosinophils (%) (Auto) 4.0 % (0.0-7.0) Basophils (%) (Auto) 0.6 % (0.0-2.0) Neutrophils # (Auto) 4.3 10 ^3/uL (1.6-8.6) Lymphocytes # (Auto) 1.4 10 ^3/uL (0.4-5.4) Monocytes # (Auto) 0.5 10 ^3/uL (0-1.3) Eosinophils # (Auto) 0.3 10 ^3/uL (0-0.8) Basophils # (Auto) 0 10 ^3/uL (0-0.2) Nucleated Red Blood Cells 0.3 % Sodium Level 137 mmol/L (136-145) Potassium Level 3.1 mmol/L (3.5-5.1) Chloride Level 100 mmol/L (98-107) Carbon Dioxide Level 29 mmol/L (20-31) Anion Gap 8 (5-15) Blood Urea Nitrogen 16 mg/dL (9-23) Creatinine 1.14 mg/dL (0.550-1.02) Glomerular Filtration Rate Calc 47 mL/min (>90) BUN/Creatinine Ratio 14.0 (10.0-20.0) Serum Glucose 140 mg/dL (74-106) Calcium Level 9.8 mg/dL (8.7-10.4) POC Glucose 189 mg/dl (70-106) Influenza Type A Antigen Negative (Negative) Influenza Type B Antigen Negative (Negative) SARS-CoV-2 Antigen (Rapid) Negative (NEGATIVE) Erythrocyte Sedimentation Rate 48 mm/hr (0-20) C-Reactive Protein High Sensitivity 1.99 mg/dL (<1.0) Other Laboratory Tests 02/19/24 10:40 Brief Hx & Hospital Course: Mrs. Elodia Rosales is an 88 year old female with a history of CHF, hypertension, A fib, Chronic kidney failure, DM, hyperlipidemia presents with left chin swelling for the "past few days", as well as SOB and productive cough. Patient reports she noticed swelling to her chin and pain x 4 days ago, patient denies any fevers, chills, nausea, vomiting, headaches, recent dental work, oral bleeding. Patient admitted for further evaluation. He is admitted and had a maxillofacial CT scan did not show any significant gas formation or abscess. Patient had incision and drainage of the. Until fluid collection in the ER by ER physician. Subsequently she was admitted and received IV antibiotics. Her symptoms have resolved. Cellulitis has improved. However she is advised to follow up with the ENT physician outpatient basis for further evaluation of infection in the periodontal region. While in the hospital patient is feeling better back to normal baseline status therefore it is felt she could be safely discharged home. Patient is advised to finish the antibiotics as she was prescribed. Patient verbalized understanding of her hospital diagnosis, treatment she received, discharge medications, discharge instructions and follow-up plan of care. 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 Radiation Dose Information: CT Dose: CTDI volume is 56.67 mGy. Dose-length product is 1142.05 mGy*cm FINDINGS: Mandible: Soft tissue swelling on the right no gas in the soft tissues Maxilla: Soft tissue swelling in the right adjacent to the maxilla. No gas in the soft tissues. No drainable fluid collections. Pterygoid plates: No emi Zygomatic processes: No fracture. Zygomatic arches: No fracture Orbits: No fracture Sinuses: Mild mucosal thickening in the ethmoid sinuses. No significant mucosal thickening in the maxillary sinuses. Facial swelling: Soft tissue swelling on the right no drainable fluid collections IMPRESSION: 1. Soft tissue swelling on the right no drainable fluid collections. 2. No gas in the soft tissues on the right. Radiation optimization: All CT scans at this facility use at least one of these dose optimization techniques: automated exposure control mA and/or kV adjustment per patient size (includes targeted exams where dose is matched to clinical indication) or iterative reconstruction. ATED BY: RANDI ORDOÑEZ Jr. DO DICTATED DATE/TIME: 02/16/24 1500 Condition at Discharge: Stable Final Diagnosis/Problems List Cellulitis Periodental anterior chin infection ANTERIOR CHIN CELLULITIS/INFECTION Discharge Disposition: Home Discharge Instruct/Medications Diet: Consistent carbohydrate, Cardiac 2g Na,low cholest Activity: No Restrictions, As Tolerated Follow Up/Referral: PRIMARY CARE PHYSICIAN NEXT WEEK AND REFERRAL TO ENT PHYSICIAN IN 2-3 WEEKS FOR FURTHER EVALUATION OF ANTERIOR MARTIN/JAW FOR INFECTION Medications: PRESCRIBED AND HOME MEDICATIONS PER DISCHARGE LIST New Medications: Doxycycline (Monohydrate) (Doxycycline) 100 Mg Cap 100 MG PO BID, #14 CAP Yeast (S. Boulardii)(S. Cerevi (Probiotic) 250 Mg Cap 250 MG PO DAILY, #14 CAP Continued Medications: Apixaban Base (Eliquis) 2.5 Mg Tab 2.5 MG PO BID for 30 Days, #60 TAB Atorvastatin Calcium (Atorvastatin Calcium) 20 Mg Tab 20 MG PO HS, #30 TAB Benzonatate (Benzonatate) 100 Mg Cap 1 CAP PO TID for 10 Days, #30 CAP 0 Refills Carvedilol (Carvedilol) 6.25 Mg Tab 6.25 MG PO BID, MG Clopidogrel Bisulfate (Clopidogrel) 75 Mg Tab 75 MG PO DAILY, #30 TAB Felodipine (Felodipine Er) 10 Mg Tab 10 MG PO DAILY, TAB Glipizide (Glipizide Er) 5 Mg Tab 5 MG PO BID, MG Guaifenesin (Mucinex) 600 Mg Tab 1 TAB PO BID for 7 Days, #14 TAB 0 Refills Losartan Potassium & Hydrochlo (Losartan Potassium/Hydroc) 1 Tab Tab 1 TAB PO DAILY MDD 100-25mg, #30 TAB 5 Refills Lovastatin (Lovastatin) 40 Mg Tab 40 MG PO HS, TAB Promethazine-Dm (Promethazine Dm 6.25-15 mg/5Ml) 1 Leila Leila 5 ML PO DAILYP PRN for 10 Days, #50 ML 0 Refills Discontinued Medications: Azithromycin (Zithromax Tablet) 250 Mg Tb 250 MG PO DAILY for 5 Days, #6 TAB 0 Refills Doxycycline Hyclate (Doxycycline Hyclate) 100 Mg Tab 1 TAB PO BID for 7 Days, #14 TAB 0 Refills Levofloxacin Hemihydrate (Levofloxacin) 500 Mg Tab 1 TAB PO DAILY for 4 Days, #4 TAB Discharge Statement: "Patient was advised to return to the ER or call 911 if any headaches, dizziness, shortness of breath, chest pain, abdominal pain, bleeding, fevers, or worsening of medical condition. Patient was counseled about treatment plan, medications, possible side effects, patientverbalized understanding. All questions were answered to the best of my ability. This discharge took greater then 30 minutes in planning, reviewing documentation, counseling the patient, and discussing with other team members." ASSESSMENT ASSESSMENT Assessment ANTERIOR CHIN CELLULITIS/INFECTION LEVI BERTRAND MD Feb 19, 2024 12:16
[2024-02-19 12:55] VITALS: BP 151/79; PULSE 65; RESP 18; TEMP 36.6; O2SAT 96
[2024-02-19] MEDS: POTASSIUM EFFERVESENT TAB 25 MEQ PO ONE (14:38)
--- NOTE | 2024-02-19 16:55 | ECG ---
[facility] Test Date: 2024-02-17 Test Time: 16:53:30 Pat Name: HELEN TREVIÑO Department: Respiratoy Room: 0219T B Gender: F Technical Trainer: josep : 1935 Requested By: LEVI BERTRAND Order Number: [id number] Reading MD: Ivette Coulter Measurements Intervals [place] Rate: 67 P: 0 ME: 0 QRS: 47 QRSD: 102 T: 204 QT: 283 QTc: 299 Interpretive Statements Atrial fibrillation Borderline repolarization abnormality Electronically Signed On 02-20-2024 12:08:25 PST by Ivette Coulter Please click the below link to view image of tracing.
== END 2024-02-19 15:05 | disposition home or self-care (01) | DRG 603 ==
LOC: EDUNIT# 10:01 → EDBD 10:01 → ER 10:01 → OVERFLOW 16:22 → TELE-CENTR 20:09 → UNDODISIN 02-17 13:55 → CENTRAL 02-18 12:32 → TELE-CENTR 02-19 06:09
PROVIDERS: ADMIT Hospitalist; ATTEND Hospitalist
DX: L03.211 Cellulitis of face (principal); Z68.41 Body mass index [BMI] 40.0-44.9, adult; I13.0 Hypertensive heart and chronic kidney disease with heart failure and stage 1 through stage 4 chronic kidney disease, or unspecified chronic kidney disease; E11.22 Type 2 diabetes mellitus with diabetic chronic kidney disease; Z20.822 Contact with and (suspected) exposure to COVID-19; E78.5 Hyperlipidemia, unspecified; I50.9 Heart failure, unspecified; I48.91 Unspecified atrial fibrillation; K04.7 Periapical abscess without sinus; N18.9 Chronic kidney disease, unspecified; Z82.49 Family history of ischemic heart disease and other diseases of the circulatory system; Z80.0 Family history of malignant neoplasm of digestive organs; Z79.84 Long term (current) use of oral hypoglycemic drugs; Z79.899 Other long term (current) drug therapy; E66.01 Morbid (severe) obesity due to excess calories
CPT/HCPCS: 36415; 41800; 70110; 70486; 80048; 82962; 85025; 85652; 86141; 87426; 87804; 93005; 93306; 99291; G0378; J2405; J3490